=== PATIENT | male | born 1970 | race Caucasian/White ===

== ENCOUNTER 2021-01-08 13:45 | Outpatient (RCR) | payer OTHER, MEDICAID, SELFPAY ==
--- NOTE | 2020-12-18 15:05 | PT.OIE ---
Current Diagnoses Cerebral infarction, unspecified (12/18/20) Hemiplegia and hemiparesis following cerebral infarction affecting right dominant side (12/18/20) Other lack of coordination (12/18/20) Visit Care Team Role Provider Type Catalina Greenberg PA-C Family Provider Non-Staff Primary Care Provider Specialty: Medical Address: [address] [place] [address], [id number] Email: José Quinn MD Attending Provider Non-Staff Referring Provider Specialty: Medical Address: [address] [place] [address], [id number] Email: Physical Therapy Initial Evaluation PT-OP-A Visit Information Start: 12/18/20 08:37 Freq: Status: Active Protocol: Document 12/18/20 11:15 AW (Rec: 12/18/20 08:51 AW [email or web address]) Out-Patient Physical Therapy Visit Information Visit Information Visit Type Initial Evaluation Visit Note Pt arrives with his brother, Yoav, but declines for brother to accompany him to exam room. 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 He spent a few weeks at inpatient rehab and was discharged home in early November. Prior to CVA, pt lived alone and was independent in all regards. 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 He now finds it difficult to stand long enough to engage in music making and has impaired speech (aphasia, paraphasia, word-finding challenges). He complains of right sided weakness, dull right-side sensation, and poor ability to know where his right limbs are in space. He now lives with his brother and mother. He states he and his brother provide assist for their mother. Yoav has a job that frequently takes him to [place] . Karissa is now able to complete all ADL's without assist. He denies falls. He gets tired more easily than usual. He is not currently driving and depends on his brother to take him to appointments. He misses the social and emotional aspects of music. Prior Treatments and Tests - IPR at [facility] following CVA. - Outpatient speech therapy concurrent with PT. Future Testing and Treatments Planned Pt has referral for outpatient OT but has not yet scheduled. Treatment Goals Patient/Caregiver Goals Hopes to return to driving. Interact socially around music . Personal Factors Other Personal Factors That May Effect Pt is strongly motivated to Therapy/Recovery return to independent driving and music-making. PT-OP-C Subjective Start: 12/18/20 08:37 Freq: Status: Active Protocol: Document 12/18/20 11:15 AW (Rec: 12/18/20 13:13 AW [email or web address]) OP-PT Subjective Patient Comments Patient Comments Pt struggles with word-finding and becomes frustrated with poor ability to speak. Enunciation is good but pt appears to have some oral motor apraxia. OP-PT Pain Assessment Pain Assessment Grid Paper Pain Assessment Grid Completed No: Pt reports pressure sensation in right thigh and lower leg but denies pain. PT-OP-D Balance Start: 12/18/20 08:37 Freq: Status: Active Protocol: Document 12/18/20 11:15 AW (Rec: 12/18/20 13:13 AW [email or web address]) Balance Tests Single Limb Standing Single Limb- Right 20 seconds with some evidence of instabilty Single Limb- Left >30 seconds stable PT-OP-E Functional Tests Start: 12/18/20 08:37 Freq: Status: Active Protocol: Document 12/18/20 11:15 AW (Rec: 12/18/20 13:13 AW [email or web address]) Functional Tests Functional Gait Assessment Score 25 Functional Gait Assessment Impairment 1 to <20% Impaired (Score 25- Rating 29) PT-OP-H Neuro Start: 12/18/20 08:37 Freq: Status: Active Protocol: Document 12/18/20 11:15 AW (Rec: 12/18/20 13:27 AW [email or web address]) Sensation Evaluation Gross Sensation Gross Sensation Right UE Impaired,Right LE Impaired Sensation Description Numbness,Heaviness Comments Summary Comments Dull light touch sensation throughout right upper and lower extremities. Pt does note sensation of heaviness and pressure in distal right thigh. Coordination Evaluation Comments Coordination Comments Signs of dysmetria on right side with finger to nose and finger braulio testing. Dysdiadochokinesia is present with rapid alternating pronation/supination. Foot tapping test produces involuntary movements and poor coordination RLE. Deep Tendon Reflex & Clonus Assessment Deep Tendon Reflex Left Achilles Deep Tendon Reflex 1+ Diminished Left Patellar Deep Tendon Reflex 2+ Normal Left Bicep Deep Tendon Reflex 1+ Diminished Right Achilles Deep Tendon Reflex 0 Absent Right Patellar Deep Tendon Reflex 1+ Diminished Right Bicep Deep Tendon Reflex 0 Absent PT-OP-K Range of Motion Start: 12/18/20 08:37 Freq: Status: Active Protocol: Document 12/18/20 11:15 AW (Rec: 12/18/20 13:27 AW [email or web address]) Shoulder Goniometric Range of Motion Shoulder bilateral Comments All UE ROM WNL Hip Goniometric Range of Motion Hip ROM Limitations Comments All LE ROM WNL PT-OP-M Strength Start: 12/18/20 08:37 Freq: Status: Active Protocol: Document 12/18/20 11:15 AW (Rec: 12/18/20 13:27 AW [email or web address]) Trunk Strength Trunk Manual Muscle Testing Testing Position Sitting Comments All trunk strength WNL Shoulder Strength Shoulder Manual Muscle Testing Right Flexion 4 Good Abduction (C5) 4 Good External Rotation 4 Good Internal Rotation 4 Good Comments LUE grossly 5/5 Elbow/Forearm Strength Elbow and Forearm Manual Muscle Testing Right Flexion (C6) 4+ Good+ Extension (C7) 4 Good Comments Left 5/5 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 Knee Strength Knee Manual Muscle Testing Right Flexion (S2) 4 Good Extension (L3) 4+ Good+ Comments left knee 5/5 Ankle/Foot Strength Ankle and Foot Manual Muscle Testing Right Dorsiflexion (L4) 4+ Good+ Plantarflexion (S1) 4 Good Comments left ankle 5/5 PT-OP-O Vestibular Start: 12/18/20 08:37 Freq: Status: Active Protocol: Document 12/18/20 11:15 AW (Rec: 12/18/20 13:29 AW [email or web address]) Vestibular Assessment Comments Vestibular Comments Vestibular screening WNL including head thrust. Good gaze stability. No signs of vestibular involvement. PT-OP-T Assessment and Plan Start: 12/18/20 08:37 Freq: Status: Active Protocol: Document 12/18/20 11:15 AW (Rec: 12/18/20 13:44 AW [email or web address]) Physical Therapy Assessment Rehab Potential Rehabilitation Potential Good Evaluation Complexity Number of Personal Factors/Comorbidities 1-2 Number of Body Systems Impaired 3 Clinical Presentation at Evaluation Stable Impairments Impairments Activity Tolerance,Balance, Coordination,Functional Activities,Gait,Sensation, Strength Other Concerns Fall Risk low per FGA score of 25/30 Goals Four Impairment dynamic balance Hash Slinger Goal (LTG) Pt will improve FGA score from 25/30 to 28/30 or greater for reduced falls risk and balance concordant with norms for age-matched peers. LTG Duration 3 months - 03/20/21 Three Impairment coordination RUE Custodial Goal (LTG) Pt will practice percussion instrument of choice for 30 minutes as evidence of improved UE coordination. LTG Duration 3 months - 03/20/21 Two Impairment limited standing tolerance Hash Slinger Goal (LTG) Pt will stand 60 minutes for improved ability to participate in musical endeavors. LTG Duration 3 months - 03/20/21 One Impairment lacks HEP Short Term Goal (STG) Pt will be instructed in HEP for LE strength and coordination STG Duration 6 weeks - 01/29/21 Custodial Goal (LTG) Pt will be independent with maintenance HEP for LE strength and coordination. LTG Duration 3 months - 03/20/21 Assessment Summary Assessment Karissa is a 50 yo man seen in outpatient PT following left MCA CVA in October 2020. He went to inpatient rehab and discharged home in early November. He is independent in all regards at baseline. 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 He would benefit from skilled physical therapy to address coordination, sensory, strength, and balance deficits to promote return to work including musicianship. Physical Therapy Plan Frequency and Duration Frequency of Treatment 1-2x/week Plan of Care Start Date 12/18/20 Plan of Care End Date 03/20/21 Therapeutic Interventions Therapeutic Interventions Balance Training,Coordination Training,Gait Training,Home Exercise Program,Manual Therapy,Neuromuscular Re- education,Patient/Caregiver Education,Self-Care/Home Management,Sensory Integration ,Therapeutic Activities, Therapeutic Exercises Other Referrals/Consults Referrals/Consults Recommended Pt is currently seeing outpatient [facility] and would benefit from OT as well. Next Visit Focus/Plan Next Note Type Treatment Note Next Visit Plan Initiate coordination/ proprioceptive training directed at R UE/LE. R UE/LE strengthening.
--- NOTE | 2020-12-18 15:05 | PT.OPPOC ---
Physical, Occupational & Speech Therapy At [facility] Current Diagnoses Cerebral infarction, unspecified (12/18/20) Hemiplegia and hemiparesis following cerebral infarction affecting right dominant side (12/18/20) Other lack of coordination (12/18/20) Visit Care Team Role Provider Type Catalina Greenberg PA-C Family Provider Non-Staff Primary Care Provider Specialty: Medical Address: [address] [place] [address], [address] Email: José Quinn MD Attending Provider Non-Staff Referring Provider Specialty: Medical Address: [address] [place] [address], [address] Email: Plan Of Care PT-OP-T Assessment and Plan Start: 12/18/20 08:37 Freq: Status: Active Protocol: Document 12/18/20 11:15 AW (Rec: 12/18/20 13:44 AW [email or web address]) Physical Therapy Assessment Rehab Potential Rehabilitation Potential Good Evaluation Complexity Number of Personal Factors/Comorbidities 1-2 Number of Body Systems Impaired 3 Clinical Presentation at Evaluation Stable Impairments Impairments Activity Tolerance,Balance, Coordination,Functional Activities,Gait,Sensation, Strength Other Concerns Fall Risk low per FGA score of 25/30 Goals Four Impairment dynamic balance Head Still Operator Goal (LTG) Pt will improve FGA score from 25/30 to 28/30 or greater for reduced falls risk and balance concordant with norms for age-matched peers. LTG Duration 3 months - 03/20/21 Three Impairment coordination RUE Half-Way Goal (LTG) Pt will practice percussion instrument of choice for 30 minutes as evidence of improved UE coordination. LTG Duration 3 months - 03/20/21 Two Impairment limited standing tolerance Head Still Operator Goal (LTG) Pt will stand 60 minutes for improved ability to participate in musical endeavors. LTG Duration 3 months - 03/20/21 One Impairment lacks HEP Short Term Goal (STG) Pt will be instructed in HEP for LE strength and coordination STG Duration 6 weeks - 01/29/21 Half-Way Goal (LTG) Pt will be independent with maintenance HEP for LE strength and coordination. LTG Duration 3 months - 03/20/21 Assessment Summary Assessment Karissa is a 50 yo man seen in outpatient PT following left MCA CVA in October 2020. He went to inpatient rehab and discharged home in early November. He is independent in all regards at baseline. 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 He would benefit from skilled physical therapy to address coordination, sensory, strength, and balance deficits to promote return to work including musicianship. Physical Therapy Plan Frequency and Duration Frequency of Treatment 1-2x/week Plan of Care Start Date 12/18/20 Plan of Care End Date 03/20/21 Therapeutic Interventions Therapeutic Interventions Balance Training,Coordination Training,Gait Training,Home Exercise Program,Manual Therapy,Neuromuscular Re- education,Patient/Caregiver Education,Self-Care/Home Management,Sensory Integration ,Therapeutic Activities, Therapeutic Exercises Other Referrals/Consults Referrals/Consults Recommended Pt is currently seeing outpatient [facility] and would benefit from OT as well. Next Visit Focus/Plan Next Note Type Treatment Note Next Visit Plan Initiate coordination/ proprioceptive training directed at R UE/LE. R UE/LE strengthening. Plan of Care Dates Plan of Care Start Date 12/18/20 Plan of Care End Date 03/20/21 Electronically Signed by: Lissett Sexton, PT 12/18/20 0267 Please Sign and Return: I have reviewed this Plan of Care and certify that the skilled therapy services above are required to meet the patient?s needs. Physician Signature Date Printed Name and Credentials Clinical Instructor Signature Printed Name and Credentials
--- NOTE | 2020-12-20 12:42 | PT.OTN ---
Current Diagnoses Cerebral infarction, unspecified (12/20/20) Hemiplegia and hemiparesis following cerebral infarction affecting right dominant side (12/20/20) Other lack of coordination (12/20/20) Physical Therapy Treatment Note PT-OP-A Visit Information Start: 12/18/20 08:37 Freq: Status: Active Protocol: Document 12/20/20 11:15 AW (Rec: 12/20/20 12:42 AW [email or web address]) Out-Patient Physical Therapy Visit Information Visit Information Visit Type Treatment Note Visit Start Time 10:30 Visit Stop Time 11:15 Total Visit Minutes 45 Visit Number 2 Number of HEALTHCARE PROJECT MANAGER Visits 0 Evaluation Information Evaluation Date 12/18/20 PT-OP-B Current Condition Start: 12/18/20 08:37 Freq: Status: Active Protocol: Document 12/18/20 11:15 AW (Rec: 12/18/20 08:51 AW [email or web address]) Current Condition History of Current Condition Onset Date 11/08/20 Current Complaints R-sided weakness and sensation disturbance s/p CVA History of Current Condition Pt was found down on 11/08/20 and treated with tPA and embolectomy for acute left ICA /MCA occlusion, 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 He spent a few weeks at inpatient rehab and was discharged home in early November. Prior to CVA, pt lived alone and was independent in all regards. 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 He now finds it difficult to stand long enough to engage in music making and has impaired speech (aphasia, paraphasia, word-finding challenges). He complains of right sided weakness, dull right-side sensation, and poor ability to know where his right limbs are in space. He now lives with his brother and mother. He states he and his brother provide assist for their mother. Yoav has a job that frequently takes him to [place] . Karissa is now able to complete all ADL's without assist. He denies falls. He gets tired more easily than usual. He is not currently driving and depends on his brother to take him to appointments. He misses the social and emotional aspects of music. Prior Treatments and Tests - IPR at [facility] following CVA. - Outpatient speech therapy concurrent with PT. Future Testing and Treatments Planned Pt has referral for outpatient OT but has not yet scheduled. Treatment Goals Patient/Caregiver Goals Hopes to return to driving. Interact socially around music . Personal Factors Other Personal Factors That May Effect Pt is strongly motivated to Therapy/Recovery return to independent driving and music-making. PT-OP-C Subjective Start: 12/18/20 08:37 Freq: Status: Active Protocol: Document 12/20/20 11:15 AW (Rec: 12/20/20 12:42 AW [email or web address]) OP-PT Subjective Patient Comments Patient Comments Pt is anxious to start therapy . PT-OP-D Balance Start: 12/18/20 08:37 Freq: Status: Active Protocol: Document 12/18/20 11:15 AW (Rec: 12/18/20 13:13 AW [email or web address]) Balance Tests Single Limb Standing Single Limb- Right 20 seconds with some evidence of instabilty Single Limb- Left >30 seconds stable PT-OP-E Functional Tests Start: 12/18/20 08:37 Freq: Status: Active Protocol: Document 12/18/20 11:15 AW (Rec: 12/18/20 13:13 AW [email or web address]) Functional Tests Functional Gait Assessment Score 25 Functional Gait Assessment Impairment 1 to <20% Impaired (Score 25- Rating 29) PT-OP-H Neuro Start: 12/18/20 08:37 Freq: Status: Active Protocol: Document 12/18/20 11:15 AW (Rec: 12/18/20 13:27 AW [email or web address]) Sensation Evaluation Gross Sensation Gross Sensation Right UE Impaired,Right LE Impaired Sensation Description Numbness,Heaviness Comments Summary Comments Dull light touch sensation throughout right upper and lower extremities. Pt does note sensation of heaviness and pressure in distal right thigh. Coordination Evaluation Comments Coordination Comments Signs of dysmetria on right side with finger to nose and finger braulio testing. Dysdiadochokinesia is present with rapid alternating pronation/supination. Foot tapping test produces involuntary movements and poor coordination RLE. Deep Tendon Reflex & Clonus Assessment Deep Tendon Reflex Left Achilles Deep Tendon Reflex 1+ Diminished Left Patellar Deep Tendon Reflex 2+ Normal Left Bicep Deep Tendon Reflex 1+ Diminished Right Achilles Deep Tendon Reflex 0 Absent Right Patellar Deep Tendon Reflex 1+ Diminished Right Bicep Deep Tendon Reflex 0 Absent PT-OP-K Range of Motion Start: 12/18/20 08:37 Freq: Status: Active Protocol: Document 12/18/20 11:15 AW (Rec: 12/18/20 13:27 AW [email or web address]) Shoulder Goniometric Range of Motion Shoulder bilateral Comments All UE ROM WNL Hip Goniometric Range of Motion Hip ROM Limitations Comments All LE ROM WNL PT-OP-M Strength Start: 12/18/20 08:37 Freq: Status: Active Protocol: Document 12/18/20 11:15 AW (Rec: 12/18/20 13:27 AW [email or web address]) Trunk Strength Trunk Manual Muscle Testing Testing Position Sitting Comments All trunk strength WNL Shoulder Strength Shoulder Manual Muscle Testing Right Flexion 4 Good Abduction (C5) 4 Good External Rotation 4 Good Internal Rotation 4 Good Comments LUE grossly 5/5 Elbow/Forearm Strength Elbow and Forearm Manual Muscle Testing Right Flexion (C6) 4+ Good+ Extension (C7) 4 Good Comments Left 5/5 Hand Vice President Compliance/Pinch Strength Hand Dominance Hand Dominance Right Hand Strength Right Comments 4/5 compared with 5/5 right side. Knee Strength Knee Manual Muscle Testing Right Flexion (S2) 4 Good Extension (L3) 4+ Good+ Comments left knee 5/5 Ankle/Foot Strength Ankle and Foot Manual Muscle Testing Right Dorsiflexion (L4) 4+ Good+ Plantarflexion (S1) 4 Good Comments left ankle 5/5 PT-OP-O Vestibular Start: 12/18/20 08:37 Freq: Status: Active Protocol: Document 12/18/20 11:15 AW (Rec: 12/18/20 13:29 AW [email or web address]) Vestibular Assessment Comments Vestibular Comments Vestibular screening WNL including head thrust. Good gaze stability. No signs of vestibular involvement. PT-OP-Q Treatments Start: 12/18/20 08:37 Freq: Status: Active Protocol: Document 12/20/20 11:15 AW (Rec: 12/20/20 12:42 AW [email or web address]) Cardio Equipment Treadmill Duration (Minutes) 5 Speed 1.6 Incline 0 Other unsafe; dc; conversational distraction added for increased cog load Gym Equipment Shuttle Recovery Unilateral Squats Details unilateral squat Resistance 75 Shuttle Recovery Platform Stable Reps/Time LLE 2 x 15; RLE 1 x 12; 1 x 10 Therapeutic Exercises Standing Exercises SL stance Standing Exercise Name SL stance Side bilateral Equipment Used rail for prn support Reps/Minutes 20-25 SH gastroc/soleus stretch Standing Exercise Name gastroc/soleus stretch Side bilateral Equipment Used BERYL, wall Reps/Minutes 30 SH x 4 Gait Training Gait Activity level surface with cog load Description level surface with cog load Device Used no AD Level of Assistance SBA Surface tile, carpet Distance/Duration 500 feet Treatment Focus walking while talking Comments Continued with walking/talking on level surface after treadmill trial ended unsafely with pt stepping backward off TM (but did not fall). Pt struggles with word-finding while walking but is safe on level surface and avoids obstacles appropriately Neuro Re-Education Treatment Coordination Activities agility ladder Details agility ladder Reps/Duration 8 min Comments - in-in-out pattern fwd/bwd - lateral [id number] step up/down/step tap Details step up/down/step tap Equipment 6 step Reps/Duration 10 min Comments - step-ups - alternating foot taps ( straight line and cross body) - step down Self-Care/Home Management Treatment Education Patient Education Home Exercise Program Other Education Gave gastroc/soleus stretch and SL stance for HEP PT-OP-T Assessment and Plan Start: 12/18/20 08:37 Freq: Status: Active Protocol: Document 12/20/20 11:15 AW (Rec: 12/20/20 12:42 AW [email or web address]) Physical Therapy Assessment Goals Four Impairment dynamic balance Instrumentation Technologist Goal (LTG) Pt will improve FGA score from 25/30 to 28/30 or greater for reduced falls risk and balance concordant with norms for age-matched peers. LTG Duration 3 months - 03/20/21 Three Impairment coordination RUE Instrumentation Technologist Goal (LTG) Pt will practice percussion instrument of choice for 30 minutes as evidence of improved UE coordination. LTG Duration 3 months - 03/20/21 Two Impairment limited standing tolerance Instrumentation Technologist Goal (LTG) Pt will stand 60 minutes for improved ability to participate in musical endeavors. LTG Duration 3 months - 03/20/21 One Impairment lacks HEP Short Term Goal (STG) Pt will be instructed in HEP for LE strength and coordination STG Duration 6 weeks - 01/29/21 Instrumentation Technologist Goal (LTG) Pt will be independent with maintenance HEP for LE strength and coordination. LTG Duration 3 months - 03/20/21 Assessment Summary Assessment Caven is motivated and shows good effort with all activities. Simple step ups and step taps/cross body step taps presented little challenge. Progressed to agility ladder for patterning and pt was able to learn two patterns but will require more work to increase upper extremity involvement and LE/ UE coordination. Pt's automatic speech (such as counting) is intact and pt is encouraged to count reps out loud with each exercise. Pt will benefit from cognitive loading during gait training and other forms of coordination training. Physical Therapy Plan Frequency and Duration Frequency of Treatment 1-2x/week Plan of Care Start Date 12/18/20 Plan of Care End Date 03/20/21 Therapeutic Interventions Therapeutic Interventions Balance Training,Coordination Training,Gait Training,Home Exercise Program,Manual Therapy,Neuromuscular Re- education,Patient/Caregiver Education,Self-Care/Home Management,Sensory Integration ,Therapeutic Activities, Therapeutic Exercises Other Referrals/Consults Referrals/Consults Recommended Pt is currently seeing outpatient [facility] and would benefit from OT as well. Next Visit Focus/Plan Next Note Type Treatment Note Next Visit Plan Continue coordination training especially cross body and UE/ LE coordination.
--- NOTE | 2020-12-25 12:29 | PT.OTN ---
Current Diagnoses Cerebral infarction, unspecified (12/25/20) Hemiplegia and hemiparesis following cerebral infarction affecting right dominant side (12/25/20) Other lack of coordination (12/25/20) Physical Therapy Treatment Note PT-OP-A Visit Information Start: 12/18/20 08:37 Freq: Status: Active Protocol: Document 12/25/20 11:15 AW (Rec: 12/25/20 11:19 AW [email or web address]) Out-Patient Physical Therapy Visit Information Visit Information Visit Type Treatment Note Visit Start Time 10:30 Visit Stop Time 11:15 Total Visit Minutes 45 Visit Number 3 Number of DYEING MACHINE FEEDER Visits 0 Evaluation Information Evaluation Date 12/18/20 PT-OP-B Current Condition Start: 12/18/20 08:37 Freq: Status: Active Protocol: Document 12/18/20 11:15 AW (Rec: 12/18/20 08:51 AW [email or web address]) Current Condition History of Current Condition Onset Date 11/08/20 Current Complaints R-sided weakness and sensation disturbance s/p CVA History of Current Condition Pt was found down on 11/08/20 and treated with tPA and embolectomy for acute left ICA /MCA occlusion, 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 He spent a few weeks at inpatient rehab and was discharged home in early November. Prior to CVA, pt lived alone and was independent in all regards. 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 He now finds it difficult to stand long enough to engage in music making and has impaired speech (aphasia, paraphasia, word-finding challenges). He complains of right sided weakness, dull right-side sensation, and poor ability to know where his right limbs are in space. He now lives with his brother and mother. He states he and his brother provide assist for their mother. Yoav has a job that frequently takes him to [place] . Karissa is now able to complete all ADL's without assist. He denies falls. He gets tired more easily than usual. He is not currently driving and depends on his brother to take him to appointments. He misses the social and emotional aspects of music. Prior Treatments and Tests - IPR at [facility] following CVA. - Outpatient speech therapy concurrent with PT. Future Testing and Treatments Planned Pt has referral for outpatient OT but has not yet scheduled. Treatment Goals Patient/Caregiver Goals Hopes to return to driving. Interact socially around music . Personal Factors Other Personal Factors That May Effect Pt is strongly motivated to Therapy/Recovery return to independent driving and music-making. PT-OP-C Subjective Start: 12/18/20 08:37 Freq: Status: Active Protocol: Document 12/25/20 11:15 AW (Rec: 12/25/20 11:19 AW [id number]) OP-PT Subjective Patient Comments Patient Comments Pt went on a 1/2 mile walk and had to stop due to right calf tightness. PT-OP-D Balance Start: 12/18/20 08:37 Freq: Status: Active Protocol: Document 12/18/20 11:15 AW (Rec: 12/18/20 13:13 AW [email or web address]) Balance Tests Single Limb Standing Single Limb- Right 20 seconds with some evidence of instabilty Single Limb- Left >30 seconds stable PT-OP-E Functional Tests Start: 12/18/20 08:37 Freq: Status: Active Protocol: Document 12/18/20 11:15 AW (Rec: 12/18/20 13:13 AW [email or web address]) Functional Tests Functional Gait Assessment Score 25 Functional Gait Assessment Impairment 1 to <20% Impaired (Score 25- Rating 29) PT-OP-H Neuro Start: 12/18/20 08:37 Freq: Status: Active Protocol: Document 12/18/20 11:15 AW (Rec: 12/18/20 13:27 AW [email or web address]) Sensation Evaluation Gross Sensation Gross Sensation Right UE Impaired,Right LE Impaired Sensation Description Numbness,Heaviness Comments Summary Comments Dull light touch sensation throughout right upper and lower extremities. Pt does note sensation of heaviness and pressure in distal right thigh. Coordination Evaluation Comments Coordination Comments Signs of dysmetria on right side with finger to nose and finger braulio testing. Dysdiadochokinesia is present with rapid alternating pronation/supination. Foot tapping test produces involuntary movements and poor coordination RLE. Deep Tendon Reflex & Clonus Assessment Deep Tendon Reflex Left Achilles Deep Tendon Reflex 1+ Diminished Left Patellar Deep Tendon Reflex 2+ Normal Left Bicep Deep Tendon Reflex 1+ Diminished Right Achilles Deep Tendon Reflex 0 Absent Right Patellar Deep Tendon Reflex 1+ Diminished Right Bicep Deep Tendon Reflex 0 Absent PT-OP-K Range of Motion Start: 12/18/20 08:37 Freq: Status: Active Protocol: Document 12/18/20 11:15 AW (Rec: 12/18/20 13:27 AW [email or web address]) Shoulder Goniometric Range of Motion Shoulder bilateral Comments All UE ROM WNL Hip Goniometric Range of Motion Hip ROM Limitations Comments All LE ROM WNL PT-OP-M Strength Start: 12/18/20 08:37 Freq: Status: Active Protocol: Document 12/18/20 11:15 AW (Rec: 12/18/20 13:27 AW [email or web address]) Trunk Strength Trunk Manual Muscle Testing Testing Position Sitting Comments All trunk strength WNL Shoulder Strength Shoulder Manual Muscle Testing Right Flexion 4 Good Abduction (C5) 4 Good External Rotation 4 Good Internal Rotation 4 Good Comments LUE grossly 5/5 Elbow/Forearm Strength Elbow and Forearm Manual Muscle Testing Right Flexion (C6) 4+ Good+ Extension (C7) 4 Good Comments Left 5/5 Hand Building Rigger/Pinch Strength Hand Dominance Hand Dominance Right Hand Strength Right Comments 4/5 compared with 5/5 right side. Knee Strength Knee Manual Muscle Testing Right Flexion (S2) 4 Good Extension (L3) 4+ Good+ Comments left knee 5/5 Ankle/Foot Strength Ankle and Foot Manual Muscle Testing Right Dorsiflexion (L4) 4+ Good+ Plantarflexion (S1) 4 Good Comments left ankle 5/5 PT-OP-O Vestibular Start: 12/18/20 08:37 Freq: Status: Active Protocol: Document 12/18/20 11:15 AW (Rec: 12/18/20 13:29 AW [email or web address]) Vestibular Assessment Comments Vestibular Comments Vestibular screening WNL including head thrust. Good gaze stability. No signs of vestibular involvement. PT-OP-Q Treatments Start: 12/18/20 08:37 Freq: Status: Active Protocol: Document 12/25/20 11:15 AW (Rec: 12/25/20 12:29 AW [email or web address]) Therapeutic Exercises Standing Exercises resisted ambulation Standing Exercise Name lateral and fwd Resistance yellow loop Reps/Minutes 20' lap x 4 SL stance Standing Exercise Name SL stance Side bilateral Equipment Used rail for prn support Reps/Minutes 20-25 SH gastroc/soleus stretch Standing Exercise Name gastroc/soleus stretch Side bilateral Equipment Used BERYL, wall Reps/Minutes 30 SH x 4 Gait Training Gait Activity stairs Description stairs Device Used L rail ascending Level of Assistance SBA Distance/Duration 5 min Treatment Focus proprioception; foot placement Comments Practiced on lobby stairs 14 x 5 with emphasis on full right foot placed on step vs initially observed with only forefoot on step especially ascending. level surface with cog load Description level surface with cog load Device Used no AD Level of Assistance SBA Surface tile, carpet Distance/Duration 12 min Treatment Focus walking while talking Comments Walking and talking, hurdles. Pt was asked to count backward from 50 and from 100 by varying factors. Speed slows with cognitive load but pt was successful navigating hurdles with and without distraction. Neuro Re-Education Treatment Coordination Activities box step Details box step Speed not timed Reps/Duration 5 min Comments Pt had difficulty coordinating foot movements especially when switching left to right. Assigned for HEP agility ladder Details agility ladder Reps/Duration 2 min Comments attempted LE/UE coordination but was too challenging for pt ; moved on to box step step up/down/step tap Details step up/down/step tap Equipment 6 step Reps/Duration 7 min Comments - alternating foot taps ( straight line and cross body) with EO and EC PT-OP-T Assessment and Plan Start: 12/18/20 08:37 Freq: Status: Active Protocol: Document 12/25/20 11:15 AW (Rec: 12/25/20 12:29 AW [email or web address]) Physical Therapy Assessment Rehab Potential Rehabilitation Potential Good Evaluation Complexity Number of Personal Factors/Comorbidities 1-2 Number of Body Systems Impaired 3 Clinical Presentation at Evaluation Stable Impairments Impairments Activity Tolerance,Balance, Coordination,Functional Activities,Gait,Sensation, Strength Other Concerns Fall Risk low per FGA score of 25/30 Goals Four Impairment dynamic balance Chcf Goal (LTG) Pt will improve FGA score from 25/30 to 28/30 or greater for reduced falls risk and balance concordant with norms for age-matched peers. LTG Duration 3 months - 03/20/21 Three Impairment coordination RUE Tool Grinder Goal (LTG) Pt will practice percussion instrument of choice for 30 minutes as evidence of improved UE coordination. LTG Duration 3 months - 03/20/21 Two Impairment limited standing tolerance Tool Grinder Goal (LTG) Pt will stand 60 minutes for improved ability to participate in musical endeavors. LTG Duration 3 months - 03/20/21 One Impairment lacks HEP Short Term Goal (STG) Pt will be instructed in HEP for LE strength and coordination STG Duration 6 weeks - 01/29/21 Tool Grinder Goal (LTG) Pt will be independent with maintenance HEP for LE strength and coordination. LTG Duration 3 months - 03/20/21 Assessment Summary Assessment Karissa struggles with gait tasks and gait speed decreases when cognitive load is increased but he has no LOB. LE/UE coordination remains challenging. Assigned hip strength and box step (for coordination) to home program. 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 Next Visit Focus/Plan Next Note Type Treatment Note Next Visit Plan Continue coordination training especially cross body and UE/ LE coordination. Cognitive load with gait and coordination tasks.
--- NOTE | 2020-12-27 12:27 | PT.OTN ---
Current Diagnoses Cerebral infarction, unspecified (12/27/20) Hemiplegia and hemiparesis following cerebral infarction affecting right dominant side (12/27/20) Other lack of coordination (12/27/20) Physical Therapy Treatment Note PT-OP-A Visit Information Start: 12/18/20 08:37 Freq: Status: Active Protocol: Document 12/27/20 11:16 AW (Rec: 12/27/20 12:27 AW [email or web address]) Out-Patient Physical Therapy Visit Information Visit Information Visit Type Treatment Note Visit Start Time 10:30 Visit Stop Time 11:16 Total Visit Minutes 46 Visit Number 4 Number of DYE LINE OPERATOR Visits 0 Evaluation Information Evaluation Date 12/18/20 PT-OP-B Current Condition Start: 12/18/20 08:37 Freq: Status: Active Protocol: Document 12/18/20 11:15 AW (Rec: 12/18/20 08:51 AW [email or web address]) Current Condition History of Current Condition Onset Date 11/08/20 Current Complaints R-sided weakness and sensation disturbance s/p CVA History of Current Condition Pt was found down on 11/08/20 and treated with tPA and embolectomy for acute left ICA /MCA occlusion, 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 He spent a few weeks at inpatient rehab and was discharged home in early November. Prior to CVA, pt lived alone and was independent in all regards. 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 He now finds it difficult to stand long enough to engage in music making and has impaired speech (aphasia, paraphasia, word-finding challenges). He complains of right sided weakness, dull right-side sensation, and poor ability to know where his right limbs are in space. He now lives with his brother and mother. He states he and his brother provide assist for their mother. Yoav has a job that frequently takes him to [place] . Karissa is now able to complete all ADL's without assist. He denies falls. He gets tired more easily than usual. He is not currently driving and depends on his brother to take him to appointments. He misses the social and emotional aspects of music. Prior Treatments and Tests - IPR at [facility] following CVA. - Outpatient speech therapy concurrent with PT. Future Testing and Treatments Planned Pt has referral for outpatient OT but has not yet scheduled. Treatment Goals Patient/Caregiver Goals Hopes to return to driving. Interact socially around music . Personal Factors Other Personal Factors That May Effect Pt is strongly motivated to Therapy/Recovery return to independent driving and music-making. PT-OP-C Subjective Start: 12/18/20 08:37 Freq: Status: Active Protocol: Document 12/27/20 11:16 AW (Rec: 12/27/20 12:27 AW [email or web address]) OP-PT Subjective Patient Comments Patient Comments Pt has been working on HEP, feels he is ready to reduce to once weekly visits. PT-OP-D Balance Start: 12/18/20 08:37 Freq: Status: Active Protocol: Document 12/18/20 11:15 AW (Rec: 12/18/20 13:13 AW [email or web address]) Balance Tests Single Limb Standing Single Limb- Right 20 seconds with some evidence of instabilty Single Limb- Left >30 seconds stable PT-OP-E Functional Tests Start: 12/18/20 08:37 Freq: Status: Active Protocol: Document 12/18/20 11:15 AW (Rec: 12/18/20 13:13 AW [email or web address]) Functional Tests Functional Gait Assessment Score 25 Functional Gait Assessment Impairment 1 to <20% Impaired (Score 25- Rating 29) PT-OP-H Neuro Start: 12/18/20 08:37 Freq: Status: Active Protocol: Document 12/18/20 11:15 AW (Rec: 12/18/20 13:27 AW [email or web address]) Sensation Evaluation Gross Sensation Gross Sensation Right UE Impaired,Right LE Impaired Sensation Description Numbness,Heaviness Comments Summary Comments Dull light touch sensation throughout right upper and lower extremities. Pt does note sensation of heaviness and pressure in distal right thigh. Coordination Evaluation Comments Coordination Comments Signs of dysmetria on right side with finger to nose and finger braulio testing. Dysdiadochokinesia is present with rapid alternating pronation/supination. Foot tapping test produces involuntary movements and poor coordination RLE. Deep Tendon Reflex & Clonus Assessment Deep Tendon Reflex Left Achilles Deep Tendon Reflex 1+ Diminished Left Patellar Deep Tendon Reflex 2+ Normal Left Bicep Deep Tendon Reflex 1+ Diminished Right Achilles Deep Tendon Reflex 0 Absent Right Patellar Deep Tendon Reflex 1+ Diminished Right Bicep Deep Tendon Reflex 0 Absent PT-OP-K Range of Motion Start: 12/18/20 08:37 Freq: Status: Active Protocol: Document 12/18/20 11:15 AW (Rec: 12/18/20 13:27 AW [email or web address]) Shoulder Goniometric Range of Motion Shoulder bilateral Comments All UE ROM WNL Hip Goniometric Range of Motion Hip ROM Limitations Comments All LE ROM WNL PT-OP-M Strength Start: 12/18/20 08:37 Freq: Status: Active Protocol: Document 12/18/20 11:15 AW (Rec: 12/18/20 13:27 AW [email or web address]) Trunk Strength Trunk Manual Muscle Testing Testing Position Sitting Comments All trunk strength WNL Shoulder Strength Shoulder Manual Muscle Testing Right Flexion 4 Good Abduction (C5) 4 Good External Rotation 4 Good Internal Rotation 4 Good Comments LUE grossly 5/5 Elbow/Forearm Strength Elbow and Forearm Manual Muscle Testing Right Flexion (C6) 4+ Good+ Extension (C7) 4 Good Comments Left 5/5 Hand Electric Melt Operator/Pinch Strength Hand Dominance Hand Dominance Right Hand Strength Right Comments 4/5 compared with 5/5 right side. Knee Strength Knee Manual Muscle Testing Right Flexion (S2) 4 Good Extension (L3) 4+ Good+ Comments left knee 5/5 Ankle/Foot Strength Ankle and Foot Manual Muscle Testing Right Dorsiflexion (L4) 4+ Good+ Plantarflexion (S1) 4 Good Comments left ankle 5/5 PT-OP-O Vestibular Start: 12/18/20 08:37 Freq: Status: Active Protocol: Document 12/18/20 11:15 AW (Rec: 12/18/20 13:29 AW [email or web address]) Vestibular Assessment Comments Vestibular Comments Vestibular screening WNL including head thrust. Good gaze stability. No signs of vestibular involvement. PT-OP-Q Treatments Start: 12/18/20 08:37 Freq: Status: Active Protocol: Document 12/27/20 11:16 AW (Rec: 12/27/20 12:27 AW [email or web address]) Gym Equipment Shuttle Balance red chains Details NBOS, arm movements Reps/Duration 5 min Comments Pt able to stand NBOS and swing arms together and reciprocating SBA. Therapeutic Exercises Standing Exercises SL stance Standing Exercise Name SL stance on foam Side bilateral Equipment Used rail for prn support Reps/Minutes 20-30 sec Comments also added paloff press in SLS gastroc/soleus stretch Standing Exercise Name gastroc/soleus stretch Side bilateral Equipment Used BERYL, wall Reps/Minutes 30 SH x 4 Gait Training Gait Activity level surface with cog load Description level surface with cog load Device Used no AD Level of Assistance SBA Surface tile, carpet Distance/Duration 10 min Treatment Focus walking while talking Comments Walking and talking. Pt was asked to count forward by threes, to list chords in familiar songs, and to list fruits by category. Category naming was most challenging. Speed slows with cognitive load but pt was successful navigating obstacles with and without distraction. Neuro Re-Education Treatment Coordination Activities grapevine Details grapevine Reps/Duration 20' laps x 3 Comments Focus on step length, foot clearance. box step Details box step Speed 60-65 bpm Reps/Duration 5 min Comments With auditory cues provided by metronome. Pt able to replicate at home step up/down/step tap Details step up/down/step tap Equipment 6 step Reps/Duration 5 min Comments - alternating foot taps ( straight line and cross body) with EO and EC Self-Care/Home Management Treatment Education Patient Education Home Exercise Program Other Education Added box step with metronome for HEP and encouraged SLS with hip flexed to 90 degrees. PT-OP-T Assessment and Plan Start: 12/18/20 08:37 Freq: Status: Active Protocol: Document 12/27/20 11:16 AW (Rec: 12/27/20 12:27 AW [email or web address]) Physical Therapy Assessment Other Concerns Fall Risk low per FGA score of 25/30 Goals Four Impairment dynamic balance Fisheries Technician Goal (LTG) Pt will improve FGA score from 25/30 to 28/30 or greater for reduced falls risk and balance concordant with norms for age-matched peers. LTG Duration 3 months - 03/20/21 Three Impairment coordination RUE Residential Goal (LTG) Pt will practice percussion instrument of choice for 30 minutes as evidence of improved UE coordination. LTG Duration 3 months - 03/20/21 Two Impairment limited standing tolerance Residential Goal (LTG) Pt will stand 60 minutes for improved ability to participate in musical endeavors. LTG Duration 3 months - 03/20/21 One Impairment lacks HEP Short Term Goal (STG) Pt will be instructed in HEP for LE strength and coordination STG Duration 6 weeks - 01/29/21 Residential Goal (LTG) Pt will be independent with maintenance HEP for LE strength and coordination. LTG Duration 3 months - 03/20/21 Assessment Summary Assessment Gait speed more consistent with cognitive load today. Pt progressing with coordination tasks and can perform simple box step at rate of 60-65 movements per minute. Pt will reduce visit frequency to weekly to coordinate with LEHR OPERATOR appointments. Physical Therapy Plan Frequency and Duration Frequency of Treatment 1-2x/week Plan of Care Start Date 12/18/20 Plan of Care End Date 03/20/21 Therapeutic Interventions Therapeutic Interventions Balance Training,Coordination Training,Gait Training,Home Exercise Program,Manual Therapy,Neuromuscular Re- education,Patient/Caregiver Education,Self-Care/Home Management,Sensory Integration ,Therapeutic Activities, Therapeutic Exercises Next Visit Focus/Plan Next Note Type Treatment Note Next Visit Plan Continue coordination training especially cross body and UE/ LE coordination. Cognitive load with gait and coordination tasks.
--- NOTE | 2021-01-03 16:25 | PT.OTN ---
Current Diagnoses Cerebral infarction, unspecified (01/03/21) Hemiplegia and hemiparesis following cerebral infarction affecting right dominant side (01/03/21) Other lack of coordination (01/03/21) Physical Therapy Treatment Note PT-OP-A Visit Information Start: 12/18/20 08:37 Freq: Status: Active Protocol: Document 01/03/21 14:30 AW (Rec: 01/03/21 14:33 AW [email or web address]) Out-Patient Physical Therapy Visit Information Visit Information Visit Type Treatment Note Visit Start Time 13:45 Visit Stop Time 14:30 Total Visit Minutes 45 Visit Number 5 Number of STENO POOL SUPERVISOR Visits 0 Evaluation Information Evaluation Date 12/18/20 PT-OP-B Current Condition Start: 12/18/20 08:37 Freq: Status: Active Protocol: Document 12/18/20 11:15 AW (Rec: 12/18/20 08:51 AW [email or web address]) Current Condition History of Current Condition Onset Date 11/08/20 Current Complaints R-sided weakness and sensation disturbance s/p CVA History of Current Condition Pt was found down on 11/08/20 and treated with tPA and embolectomy for acute left ICA /MCA occlusion, 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 He spent a few weeks at inpatient rehab and was discharged home in early November. Prior to CVA, pt lived alone and was independent in all regards. 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 He now finds it difficult to stand long enough to engage in music making and has impaired speech (aphasia, paraphasia, word-finding challenges). He complains of right sided weakness, dull right-side sensation, and poor ability to know where his right limbs are in space. He now lives with his brother and mother. He states he and his brother provide assist for their mother. Yoav has a job that frequently takes him to [place] . Karissa is now able to complete all ADL's without assist. He denies falls. He gets tired more easily than usual. He is not currently driving and depends on his brother to take him to appointments. He misses the social and emotional aspects of music. Prior Treatments and Tests - IPR at [facility] following CVA. - Outpatient speech therapy concurrent with PT. Future Testing and Treatments Planned Pt has referral for outpatient OT but has not yet scheduled. Treatment Goals Patient/Caregiver Goals Hopes to return to driving. Interact socially around music . Personal Factors Other Personal Factors That May Effect Pt is strongly motivated to Therapy/Recovery return to independent driving and music-making. PT-OP-C Subjective Start: 12/18/20 08:37 Freq: Status: Active Protocol: Document 01/03/21 14:30 AW (Rec: 01/03/21 14:33 AW [email or web address]) OP-PT Subjective Patient Comments Patient Comments Pt continues to work on HEP consistently. He has been practicing [employer] at home and feels good about his breath support. PT-OP-D Balance Start: 12/18/20 08:37 Freq: Status: Active Protocol: Document 12/18/20 11:15 AW (Rec: 12/18/20 13:13 AW [email or web address]) Balance Tests Single Limb Standing Single Limb- Right 20 seconds with some evidence of instabilty Single Limb- Left >30 seconds stable PT-OP-E Functional Tests Start: 12/18/20 08:37 Freq: Status: Active Protocol: Document 12/18/20 11:15 AW (Rec: 12/18/20 13:13 AW [email or web address]) Functional Tests Functional Gait Assessment Score 25 Functional Gait Assessment Impairment 1 to <20% Impaired (Score 25- Rating 29) PT-OP-H Neuro Start: 12/18/20 08:37 Freq: Status: Active Protocol: Document 12/18/20 11:15 AW (Rec: 12/18/20 13:27 AW [email or web address]) Sensation Evaluation Gross Sensation Gross Sensation Right UE Impaired,Right LE Impaired Sensation Description Numbness,Heaviness Comments Summary Comments Dull light touch sensation throughout right upper and lower extremities. Pt does note sensation of heaviness and pressure in distal right thigh. Coordination Evaluation Comments Coordination Comments Signs of dysmetria on right side with finger to nose and finger braulio testing. Dysdiadochokinesia is present with rapid alternating pronation/supination. Foot tapping test produces involuntary movements and poor coordination RLE. Deep Tendon Reflex & Clonus Assessment Deep Tendon Reflex Left Achilles Deep Tendon Reflex 1+ Diminished Left Patellar Deep Tendon Reflex 2+ Normal Left Bicep Deep Tendon Reflex 1+ Diminished Right Achilles Deep Tendon Reflex 0 Absent Right Patellar Deep Tendon Reflex 1+ Diminished Right Bicep Deep Tendon Reflex 0 Absent PT-OP-K Range of Motion Start: 12/18/20 08:37 Freq: Status: Active Protocol: Document 12/18/20 11:15 AW (Rec: 12/18/20 13:27 AW [email or web address]) Shoulder Goniometric Range of Motion Shoulder bilateral Comments All UE ROM WNL Hip Goniometric Range of Motion Hip ROM Limitations Comments All LE ROM WNL PT-OP-M Strength Start: 12/18/20 08:37 Freq: Status: Active Protocol: Document 12/18/20 11:15 AW (Rec: 12/18/20 13:27 AW [email or web address]) Trunk Strength Trunk Manual Muscle Testing Testing Position Sitting Comments All trunk strength WNL Shoulder Strength Shoulder Manual Muscle Testing Right Flexion 4 Good Abduction (C5) 4 Good External Rotation 4 Good Internal Rotation 4 Good Comments LUE grossly 5/5 Elbow/Forearm Strength Elbow and Forearm Manual Muscle Testing Right Flexion (C6) 4+ Good+ Extension (C7) 4 Good Comments Left 5/5 Hand Spinning Lathe Operator/Pinch Strength Hand Dominance Hand Dominance Right Hand Strength Right Comments 4/5 compared with 5/5 right side. Knee Strength Knee Manual Muscle Testing Right Flexion (S2) 4 Good Extension (L3) 4+ Good+ Comments left knee 5/5 Ankle/Foot Strength Ankle and Foot Manual Muscle Testing Right Dorsiflexion (L4) 4+ Good+ Plantarflexion (S1) 4 Good Comments left ankle 5/5 PT-OP-O Vestibular Start: 12/18/20 08:37 Freq: Status: Active Protocol: Document 12/18/20 11:15 AW (Rec: 12/18/20 13:29 AW [email or web address]) Vestibular Assessment Comments Vestibular Comments Vestibular screening WNL including head thrust. Good gaze stability. No signs of vestibular involvement. PT-OP-Q Treatments Start: 12/18/20 08:37 Freq: Status: Active Protocol: Document 01/03/21 14:30 AW (Rec: 01/03/21 14:33 AW [id number]) Cardio Equipment Recumbent Elliptical (Biodex) Duration (Minutes) 6 Resistance 4 Seat Position 9 Other for UE/LE coordination Gym Equipment Shuttle Balance red chains Details NBOS, arm movements Reps/Duration 5 min Comments Pt able to stand NBOS and swing arms together and reciprocating SBA. Sport Cord red Cord/Resistance red Comments resisted ambulation, resisted step ups - fwd and lateral, resisted sit to stand Therapeutic Exercises Standing Exercises SL stance Standing Exercise Name SL stance on foam Side bilateral Equipment Used rail available for prn support but not needed Reps/Minutes 20-30 sec gastroc/soleus stretch Standing Exercise Name gastroc/soleus stretch Side bilateral Equipment Used 6 step Reps/Minutes 30 SH x 4 Comments alternating with heel raises Gait Training Gait Activity stairs Description stairs Device Used L rail ascending Level of Assistance SBA Distance/Duration 5 min Treatment Focus proprioception; foot placement Comments Practiced on lobby stairs 14 x 4 with emphasis on full right foot placed on step vs initially observed with only forefoot on step especially ascending. level surface with cog load Description level surface with cog load Device Used no AD Level of Assistance SBA Surface tile, carpet Distance/Duration 8 min Treatment Focus walking while talking Comments Walking and talking. Pt was asked to name stringed instruments (with which he is well familiar). Naming was challenging. Speed more consistent with cognitive load today. PT-OP-T Assessment and Plan Start: 12/18/20 08:37 Freq: Status: Active Protocol: Document 01/03/21 14:30 AW (Rec: 01/03/21 16:25 AW [email or web address]) Physical Therapy Assessment Other Concerns Fall Risk low per FGA score of 25/30 Goals Four Impairment dynamic balance Central Office Inspector Goal (LTG) Pt will improve FGA score from 25/30 to 28/30 or greater for reduced falls risk and balance concordant with norms for age-matched peers. LTG Duration 3 months - 03/20/21 Three Impairment coordination RUE Central Office Inspector Goal (LTG) Pt will practice percussion instrument of choice for 30 minutes as evidence of improved UE coordination. LTG Duration 3 months - 03/20/21 Two Impairment limited standing tolerance Care Home Goal (LTG) Pt will stand 60 minutes for improved ability to participate in musical endeavors. LTG Duration 3 months - 03/20/21 One Impairment lacks HEP Short Term Goal (STG) Pt will be instructed in HEP for LE strength and coordination STG Duration 6 weeks - 01/29/21 Care Home Goal (LTG) Pt will be independent with maintenance HEP for LE strength and coordination. LTG Duration 3 months - 03/20/21 Assessment Summary Assessment Karissa had difficulty with resisted step ups leading with his left leg. His gait with cognitive load continues to improve. Discussed likely discharge with pt within the next few sessions. Physical Therapy Plan Frequency and Duration Frequency of Treatment 1-2x/week Plan of Care Start Date 12/18/20 Plan of Care End Date 03/20/21 Therapeutic Interventions Therapeutic Interventions Balance Training,Coordination Training,Gait Training,Home Exercise Program,Manual Therapy,Neuromuscular Re- education,Patient/Caregiver Education,Self-Care/Home Management,Sensory Integration ,Therapeutic Activities, Therapeutic Exercises Next Visit Focus/Plan Next Note Type Treatment Note Next Visit Plan Continue coordination training especially cross body and UE/ LE coordination. Cognitive load with gait and coordination tasks.
--- NOTE | 2021-01-08 14:55 | PT.OTN ---
Current Diagnoses Cerebral infarction, unspecified (01/08/21) Hemiplegia and hemiparesis following cerebral infarction affecting right dominant side (01/08/21) Other lack of coordination (01/08/21) Physical Therapy Treatment Note PT-OP-A Visit Information Start: 12/18/20 08:37 Freq: Status: Active Protocol: Document 01/08/21 14:30 AW (Rec: 01/08/21 14:30 AW [id number]) Out-Patient Physical Therapy Visit Information Visit Information Visit Type Treatment Note Visit Start Time 13:50 Visit Stop Time 14:30 Total Visit Minutes 40 Visit Number 6 Number of VP PRODUCT Visits 0 Evaluation Information Evaluation Date 12/18/20 PT-OP-B Current Condition Start: 12/18/20 08:37 Freq: Status: Active Protocol: Document 12/18/20 11:15 AW (Rec: 12/18/20 08:51 AW [email or web address]) Current Condition History of Current Condition Onset Date 11/08/20 Current Complaints R-sided weakness and sensation disturbance s/p CVA History of Current Condition Pt was found down on 11/08/20 and treated with tPA and embolectomy for acute left ICA /MCA occlusion, 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 He spent a few weeks at inpatient rehab and was discharged home in early November. Prior to CVA, pt lived alone and was independent in all regards. 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 He now finds it difficult to stand long enough to engage in music making and has impaired speech (aphasia, paraphasia, word-finding challenges). He complains of right sided weakness, dull right-side sensation, and poor ability to know where his right limbs are in space. He now lives with his brother and mother. He states he and his brother provide assist for their mother. Yoav has a job that frequently takes him to [place] . Karissa is now able to complete all ADL's without assist. He denies falls. He gets tired more easily than usual. He is not currently driving and depends on his brother to take him to appointments. He misses the social and emotional aspects of music. Prior Treatments and Tests - IPR at [facility] following CVA. - Outpatient speech therapy concurrent with PT. Future Testing and Treatments Planned Pt has referral for outpatient OT but has not yet scheduled. Treatment Goals Patient/Caregiver Goals Hopes to return to driving. Interact socially around music . Personal Factors Other Personal Factors That May Effect Pt is strongly motivated to Therapy/Recovery return to independent driving and music-making. PT-OP-C Subjective Start: 12/18/20 08:37 Freq: Status: Active Protocol: Document 01/08/21 14:30 AW (Rec: 01/08/21 14:30 AW [id number]) OP-PT Subjective Patient Comments Patient Comments Pt picked up the fiddle since last visit and reports improving bow accuracy. PT-OP-D Balance Start: 12/18/20 08:37 Freq: Status: Active Protocol: Document 12/18/20 11:15 AW (Rec: 12/18/20 13:13 AW [email or web address]) Balance Tests Single Limb Standing Single Limb- Right 20 seconds with some evidence of instabilty Single Limb- Left >30 seconds stable PT-OP-E Functional Tests Start: 12/18/20 08:37 Freq: Status: Active Protocol: Document 12/18/20 11:15 AW (Rec: 12/18/20 13:13 AW [email or web address]) Functional Tests Functional Gait Assessment Score 25 Functional Gait Assessment Impairment 1 to <20% Impaired (Score 25- Rating 29) PT-OP-H Neuro Start: 12/18/20 08:37 Freq: Status: Active Protocol: Document 12/18/20 11:15 AW (Rec: 12/18/20 13:27 AW [email or web address]) Sensation Evaluation Gross Sensation Gross Sensation Right UE Impaired,Right LE Impaired Sensation Description Numbness,Heaviness Comments Summary Comments Dull light touch sensation throughout right upper and lower extremities. Pt does note sensation of heaviness and pressure in distal right thigh. Coordination Evaluation Comments Coordination Comments Signs of dysmetria on right side with finger to nose and finger braulio testing. Dysdiadochokinesia is present with rapid alternating pronation/supination. Foot tapping test produces involuntary movements and poor coordination RLE. Deep Tendon Reflex & Clonus Assessment Deep Tendon Reflex Left Achilles Deep Tendon Reflex 1+ Diminished Left Patellar Deep Tendon Reflex 2+ Normal Left Bicep Deep Tendon Reflex 1+ Diminished Right Achilles Deep Tendon Reflex 0 Absent Right Patellar Deep Tendon Reflex 1+ Diminished Right Bicep Deep Tendon Reflex 0 Absent PT-OP-K Range of Motion Start: 12/18/20 08:37 Freq: Status: Active Protocol: Document 12/18/20 11:15 AW (Rec: 12/18/20 13:27 AW [email or web address]) Shoulder Goniometric Range of Motion Shoulder bilateral Comments All UE ROM WNL Hip Goniometric Range of Motion Hip ROM Limitations Comments All LE ROM WNL PT-OP-M Strength Start: 12/18/20 08:37 Freq: Status: Active Protocol: Document 12/18/20 11:15 AW (Rec: 12/18/20 13:27 AW [email or web address]) Trunk Strength Trunk Manual Muscle Testing Testing Position Sitting Comments All trunk strength WNL Shoulder Strength Shoulder Manual Muscle Testing Right Flexion 4 Good Abduction (C5) 4 Good External Rotation 4 Good Internal Rotation 4 Good Comments LUE grossly 5/5 Elbow/Forearm Strength Elbow and Forearm Manual Muscle Testing Right Flexion (C6) 4+ Good+ Extension (C7) 4 Good Comments Left 5/5 Hand Sound Person/Pinch Strength Hand Dominance Hand Dominance Right Hand Strength Right Comments 4/5 compared with 5/5 right side. Knee Strength Knee Manual Muscle Testing Right Flexion (S2) 4 Good Extension (L3) 4+ Good+ Comments left knee 5/5 Ankle/Foot Strength Ankle and Foot Manual Muscle Testing Right Dorsiflexion (L4) 4+ Good+ Plantarflexion (S1) 4 Good Comments left ankle 5/5 PT-OP-O Vestibular Start: 12/18/20 08:37 Freq: Status: Active Protocol: Document 12/18/20 11:15 AW (Rec: 12/18/20 13:29 AW [email or web address]) Vestibular Assessment Comments Vestibular Comments Vestibular screening WNL including head thrust. Good gaze stability. No signs of vestibular involvement. PT-OP-Q Treatments Start: 12/18/20 08:37 Freq: Status: Active Protocol: Document 01/08/21 14:30 AW (Rec: 01/08/21 14:30 AW [id number]) Cardio Equipment Recumbent Elliptical (Biodex) Duration (Minutes) 6 Resistance 4 Seat Position 9 Other for UE/LE coordination Therapeutic Exercises Standing Exercises SL stance Standing Exercise Name SL stance on foam with visual confrontation; progressed to STAR taps Side bilateral Equipment Used rail available for prn support but not needed Reps/Minutes 30 sec Comments plaid surround board with head turns for static SL stance Gait Training Gait Activity level surface with cog load Description level surface with cog load Device Used no AD Level of Assistance SBA Surface tile, carpet Distance/Duration 8 min Treatment Focus walking while talking Comments Walking and talking. Pt was asked to name the notes of various musical scales. Speech was fairly automatic but required extra time. Speed continues to be more consistent with cognitive load today. Neuro Re-Education Treatment Coordination Activities TM beanbags Equipment treadmill, villalobos bags Reps/Duration 5 min Comments Pt stands on ground at end of treadmill. PT places colored villalobos bags on TM belt and turns on TM. Pt squats as bags reach end of belt. PT calls out 2 colors and pt retrieves the corresponding bags before they fall. Pt 75% success rate , reaching for correct color but reaction time is limiting factor. box step Details box step Speed 55-75 bpm Reps/Duration 5 min Comments With auditory cues provided by metronome. Pt increased speed with LE only to 75 bpm. With arm swing (one per square) , pt speed reduces to bpm PT-OP-T Assessment and Plan Start: 12/18/20 08:37 Freq: Status: Active Protocol: Document 01/03/21 14:30 AW (Rec: 01/03/21 16:25 AW [email or web address]) Physical Therapy Assessment Rehab Potential Rehabilitation Potential Good Evaluation Complexity Number of Personal Factors/Comorbidities 1-2 Number of Body Systems Impaired 3 Clinical Presentation at Evaluation Stable Impairments Impairments Activity Tolerance,Balance, Coordination,Functional Activities,Gait,Sensation, Strength Other Concerns Fall Risk low per FGA score of 25/30 Goals Four Impairment dynamic balance Assisted Goal (LTG) Pt will improve FGA score from 25/30 to 28/30 or greater for reduced falls risk and balance concordant with norms for age-matched peers. 01/08/21 - Not formally assessed. LTG Duration 3 months - 03/20/21 Three Impairment coordination RUE Rn Post Partum Goal (LTG) Pt will practice percussion instrument of choice for 30 minutes as evidence of improved UE coordination. 01/08/21 - Pt reports practicing fiordaliza whistle and fiddle at least 30 minutes at a time. LTG Duration 3 months - 03/20/21 Two Impairment limited standing tolerance Rn Post Partum Goal (LTG) Pt will stand 60 minutes for improved ability to participate in musical endeavors. 01/08/21 - Pt progressing and pleased with current tolerance . LTG Duration 3 months - 03/20/21 One Impairment lacks HEP Short Term Goal (STG) Pt will be instructed in HEP for LE strength and coordination 01/08/21 - MET STG Duration 6 weeks - 01/29/21 Rn Post Partum Goal (LTG) Pt will be independent with maintenance HEP for LE strength and coordination. 01/08/21 - MET LTG Duration 3 months - 03/20/21 Assessment Summary Assessment Karissa demonstrates no path deviation and no significant slowing during gait with cognitive load. He is aware of all obtacles and avoids them appropriately. His single leg balance and strength have improved significantly. Pt is satisfied with his ability to stand and practice fiordaliza whistle and fiddle. Pt's primary need is for speech therapy at this time and he agrees to discharge from PT. Physical Therapy Plan Frequency and Duration Frequency of Treatment 1-2x/week Plan of Care Start Date 12/18/20 Plan of Care End Date 03/20/21 Therapeutic Interventions Therapeutic Interventions Balance Training,Coordination Training,Gait Training,Home Exercise Program,Manual Therapy,Neuromuscular Re- education,Patient/Caregiver Education,Self-Care/Home Management,Sensory Integration ,Therapeutic Activities, Therapeutic Exercises Discharge Physical Therapy Discharge Reasons Goals Met Discharge Comments Gait speed with cognitive load , single leg balance and strength, and UE/LE coordination have progressed well. Pt has met or exceeded all PT goals. As his primary need at this time is speech therapy, pt and PT agree to discharge PT. Pt understands he may return but will need a new referral.
== END 2021-03-19 09:36 ==
LOC: PHYS 13:45
PROVIDERS: Family Provider Physician Assistant Medical; PCP Physician Assistant Medical; Referring Provider Physical Medicine & Rehabilitation; Visit Provider Physical Medicine & Rehabilitation
DX: I63.9 Cerebral infarction, unspecified (principal); I69.351 Hemiplegia and hemiparesis following cerebral infarction affecting right dominant side; R27.8 Other lack of coordination
CPT/HCPCS: 97110; 97112; 97116; 97162

== ENCOUNTER 2021-10-04 13:30 | Outpatient (RCR) | payer OTHER, MEDICAID, SELFPAY ==
--- NOTE | 2020-12-10 13:22 | ST.OPIE ---
Visit Care Team Role Provider Type Catalina Greenberg PA-C Family Provider Non-Staff Primary Care Provider Specialty: Medical Address: [address] [place], [address] Email: José Quinn MD Attending Provider Non-Staff Referring Provider Specialty: Medical Address: [address] [place] [address], [id number] Email: Speech-Language Pathology Initial Evaluation CALL CENTER TRAINER Adult Cognitive Linguistic Eval Start: 12/10/20 11:48 Freq: Status: Active Protocol: Document 12/10/20 12:13 LNK (Rec: 12/10/20 13:21 LNK [email or web address]) Adult Cognitive Linguistic Evaluation Session Time Visit Start Time 10:30 Visit Stop Time 11:30 Total Visit Minutes 60 Visit Information Visit Number 1 Plan of Care Dates 12/10/20-02/15/21 Insurance Information [facility] Referral Referring Provider Dr. 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 He was admitted to [facility] in [place], [place]. He also completed inpt rehab (OT, PT,ST) at [facility]. He was discharged from rehab on 11/23/20. Pt takes care of and lives with his mother who has early dementia. Pt was accompanied by his his brother , Yoav, who provided background and history. Hearing Hearing Level Normal Vision Vision Status Impaired Comments wears glasses Previous Therapy Previous Speech-Language Therapy Yes: at [facility] Subjective Patient Report Initially, pt had difficulty expressing himself. His brother, Yoav was asked to come into the session for assistance. Assessment Oral Motor Examination Completed No Informal Assessment Receptive Language Normal No: apparent deficits Receptive Language Impairment(s) Following 1-step commands Expressive Language Normal Yes Expressive Language Impairment(s) Sentence closure/completion, Confrontation naming,Divergent naming,Expression of basic wants/needs,Expression of complex thoughts/ideas,Written expression Pragmatic Language Normal Appeared to have a flat affect Pragmatic Language Impairment(s) Flat affect Speech Normal No Speech Impairment(s) Imprecise articulation,Slow speech rate,Decreased volume/ intensity,Prosody/Intonation Cognitive Impairment(s) Attention,Short-term memory, Thought organization Formal Assessment Standardized Test/Screener Type [facility] Mental Status (SLUMS) Administration Complete Results The majority of the initial session was spent gathering PMH and current rehab status from the pt and his brother. The SLUMS was given to the pt as a screening of his cognition. Pt scored 12/30, which indicates a moderate- severe cognitive decline. Pt was oriented to date and place . Mental math was challenging as was divergent naming and clock drawing. He could remember 2 of 5 words with delayed recall. He was able to answer 1 of 4 questions pertaining to a story read aloud to him. Because of the pt's aphasia, the results of the SLUMS may have been influenced by his word-finding difficulty. During the SLUMS the following informal observations noted: perseveration, paraphasias, word-finding difficulty, short term and working memory deficits. Findings/Results Language Function Moderately-severely impaired Cognitive Function Moderately-severely impaired Findings The results of the SLUMS indicates a need to further assess pt's cognition. Additonally, a full assessment of pt's aphasia/communication skills will be conducted. Cognitive Communication Deficits Self-awareness of Cognitive- Situational awareness ( Communication Deficits recognition of problem in context;in real time) Plan of Care Speech-Language Treatment Yes Frequency 1x/week Patient/Caregiver Education Described results of evaluation,Patient requires further education/training, Family/caregivers require further education/training Short Term Goals Complete cognitive and aphasia evaluations
--- NOTE | 2020-12-10 13:22 | ST.OPPOC ---
Physical, Occupational & Speech Therapy At [facility] Visit Care Team Role Provider Type Catalina Greenberg PA-C Family Provider Non-Staff Primary Care Provider Address: [address] [place] [address], [place], [address] José Quinn MD Attending Provider Non-Staff Referring Provider Address: [address] [place] [address], [id number] Speech Pathology Plan of Care Plan of Care Dates 12/10/20-02/15/21 Language Function Moderately-severely impai Cognitive Function Moderately-severely impai Findings The results of the SLUMS indicates a need to further assess pt's cognition. Additonally, a full assessment of pt's aphasia/communication skills will be conducted. Short Term Goals Complete cognitive and aphasia evaluations Electronically Signed by: LUCINA Sharpe 12/10/20 1399 Please Sign and Return: I have reviewed this Plan of Care and certify that the skilled therapy services above are required to meet the patient?s needs. Physician Signature Date Printed Name and Credentials Clinical Instructor Signature Printed Name and Credentials
--- NOTE | 2020-12-18 16:59 | ST.OPTN ---
Visit Care Team Role Provider Type Catalina Greenberg PA-C Family Provider Non-Staff Primary Care Provider Address: [address] [place] [address], [phone] José Quinn MD Attending Provider Non-Staff Referring Provider Address: [address] [place] [address], [address] CAR CUSTOMIZER Treatment Note CAR CUSTOMIZER Treatment Note Start: 12/10/20 11:48 Freq: Status: Active Protocol: Document 12/18/20 16:42 LNK (Rec: 12/18/20 16:57 LNK [email or web address]) Speech Pathology Treatment Note Session Time Visit Start Time 11:30 Visit Stop Time 12:30 Total Visit Minutes 60 Visit Information Visit Number 2 Plan of Care Dates 12/10/20-02/15/21 Setting Treatment Setting Outpatient Care Visit Type Note Type Treatment Note Next Note Type Next Note Type Treatment Note General Information General Information Pt is a 50 year old male who suffered an 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 He was admitted to [facility] in [place], [place]. He also completed inpt rehab (OT, PT,ST) at [facility]. He was discharged from rehab on 11/23/20. Pt takes care of and lives with his mother who has early dementia. Subjective Identification Type Name,Date of Identification Reconciled With Medical Record Observations/Patient Presentation Pt arrived by himself on time. He had just finished PT. pt was more verbal and interactive today. Chief Complaint(s) Speech,Language Patient Knowledge/Awareness of CAR CUSTOMIZER Role Good in Treatment Parent/Caretake Knowledge/Awareness of Good CAR CUSTOMIZER Role in Treatment Objective Short Term Goals 1) Pt will identify situations for which information will be written. He will work on completing provided forms for emergency and other ADLs to complete 2) Script therapy will be used as an external strategy to assist pt in his expression of needs to others re: emergency , needs, and requests as indicated 3) Melodic intonation therapy will be used to tap into pt's music background and aid him in expressing himself to others. 4) Pt will use word-finding strategies to enable him to recall and/or communicate to others. Treatment Activities The Western Aphasia Battery bedside screening assessment was used to determine communication ability. 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 pt demonstrated better writing and reading skills than speaking skills. Assessment Patient Response to Treatment Excellent Rehab Potential Excellent Impairments Identified Aphasia,Expressive Language Plan Amount of Therapy Recommended 3-4 Months Frequency of Treatment Once a Week Length of Session 60 Minutes Therapeutic Contents Expressive Language Training, Home Exercise Program
--- NOTE | 2020-12-25 15:02 | ST.OPTN ---
Visit Care Team Role Provider Type Catalina Greenberg PA-C Family Provider Non-Staff Primary Care Provider Address: [address] [place] [address], [id number] José Quinn MD Attending Provider Non-Staff Referring Provider Address: [address] [place] [address], [id number] SOCK LINING EXAMINER Treatment Note SOCK LINING EXAMINER Treatment Note Start: 12/10/20 11:48 Freq: Status: Active Protocol: Document 12/25/20 14:36 LNK (Rec: 12/25/20 15:00 [email or web address]) Speech Pathology Treatment Note Session Time Visit Start Time 11:30 Visit Stop Time 12:30 Total Visit Minutes 60 Visit Information Visit Number 3 Plan of Care Dates 12/10/20-02/15/21 Setting Treatment Setting Outpatient Care Visit Type Note Type Treatment Note Next Note Type Next Note Type Treatment Note General Information General Information Pt is a 50 year old male who sufferred an 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 He was admitted to [facility] in [place], [place]. He also completed inpt rehab (OT, PT,ST) at [facility]. He was discharged from rehab on 11/23/20. Pt takes care of and lives with his mother who has early dementia. Subjective Identification Type Name,Date of Identification Reconciled With Medical Record Observations/Patient Presentation Pt arrived by himself on time. He had just finished PT. Pt was more verbal and interactive today. Chief Complaint(s) Speech,Language Patient Knowledge/Awareness of SOCK LINING EXAMINER Role Good in Treatment Parent/Caretake Knowledge/Awareness of Good SOCK LINING EXAMINER Role in Treatment Objective Short Term Goals 1) Pt will identify situations for which information will be written. He will work on completing provided forms for emergency and other ADLs to complete 2) Script therapy will be used as an external strategy to assist pt in his expression of needs to others re: emergency , needs, and requests as indicated 3) Melodic intonation therapy will be used to tap into pt's music background and aid him in expressing himself to others. 4) Pt will use word-finding strategies to enable him to recall and/or communicate to others. Treatment Activities Reviewed the results of the Western Screening assessment with the pt. his strength is his reading. Receptive language is intact. He demonstrated that he can sing without difficulty. Introduced Script therapy as a means to assist pt with emergency statements and to set scripts to use/practice in orderto help communication. Melodic intonation was also discussed. Lingraphica apps for scripts and/or sentences to practice at home were demonstrated with the pt reading the sentences aloud. No apparent difficulty reading/verbalizing was observed. Assessment Patient Response to Treatment Excellent Rehab Potential Excellent Impairments Identified Aphasia,Expressive Language Progress Towards Goals Good Progress Plan Amount of Therapy Recommended 6 Months Frequency of Treatment Once a Week Length of Session 60 Minutes Therapeutic Contents Expressive Language Training, Home Exercise Program Therapy Recommendations Continue with Current Program
--- NOTE | 2021-01-03 16:44 | ST.OPTN ---
Visit Care Team Role Provider Type Catalina Greenberg PA-C Family Provider Non-Staff Primary Care Provider Address: [address] [place] [address], [id number] José Quinn MD Attending Provider Non-Staff Referring Provider Address: [address] [place] [address], [id number] BOX MAKER Treatment Note BOX MAKER Treatment Note Start: 12/10/20 11:48 Freq: Status: Active Protocol: Document 01/03/21 16:19 LNK (Rec: 01/03/21 16:44 [email or web address]) Speech Pathology Treatment Note Session Time Visit Start Time 14:30 Visit Stop Time 15:30 Total Visit Minutes 60 Visit Information Visit Number 4 Plan of Care Dates 12/10/20-02/15/21 Setting Treatment Setting Outpatient Care Visit Type Note Type Treatment Note Next Note Type Next Note Type Treatment Note General Information General Information Pt is a 50 year old male who sufferred an 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 He was admitted to [facility] in [place], [place]. He also completed inpt rehab (OT, PT,ST) at [facility]. He was discharged from rehab on 11/23/20. Pt takes care of and lives with his mother who has early dementia. Subjective Identification Type Name,Date of Identification Reconciled With Medical Record Observations/Patient Presentation Pt arrived by himself on time. He had just finished PT. Pt was more verbal and interactive today. Chief Complaint(s) Speech,Language Patient Knowledge/Awareness of BOX MAKER Role Good in Treatment Parent/Caretake Knowledge/Awareness of Good BOX MAKER Role in Treatment Objective Short Term Goals 1) Pt will identify situations for which information will be written. He will work on completing provided forms for emergency and other ADLs to complete 2) Script therapy will be used as an external strategy to assist pt in his expression of needs to others re: emergency , needs, and requests as indicated 3) Melodic intonation therapy will be used to tap into pt's music background and aid him in expressing himself to others. 4) Pt will use word-finding strategies to enable him to recall and/or communicate to others. Treatment Activities Pt reported that he is doing well. He noted that he and his brother are talking about their mother and her needs when she can't stay at home. Targeting word-finding skills using common phrases to complete. Pt was able to complete 20/20 with some struggle, but well done! provided written homework of the same. Also described and provided a list of word finding strategies for him.. pt was appreciative. Assessment Patient Response to Treatment Excellent Rehab Potential Excellent Impairments Identified Aphasia,Expressive Language Progress Towards Goals Good Progress Plan Amount of Therapy Recommended 6 Months Frequency of Treatment Once a Week Length of Session 60 Minutes Therapeutic Contents Expressive Language Training, Home Exercise Program Therapy Recommendations Continue with Current Program
--- NOTE | 2021-01-08 17:00 | ST.OPTN ---
Visit Care Team Role Provider Type Catalina Greenberg PA-C Family Provider Non-Staff Primary Care Provider Address: [address] [place] [address], [id number] José Quinn MD Attending Provider Non-Staff Referring Provider Address: [address] [place] [address], [id number] AGENCY SALES REPRESENTATIVE Treatment Note AGENCY SALES REPRESENTATIVE Treatment Note Start: 12/10/20 11:48 Freq: Status: Active Protocol: Document 01/08/21 16:55 LNK (Rec: 01/08/21 17:00 LNK [email or web address]) Speech Pathology Treatment Note Session Time Visit Start Time 14:30 Visit Stop Time 15:30 Total Visit Minutes 60 Visit Information Visit Number 5 Plan of Care Dates 12/10/20-02/15/21 Setting Treatment Setting Outpatient Care Visit Type Note Type Treatment Note Next Note Type Next Note Type Treatment Note General Information General Information Pt is a 50 year old male who suffered an 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 He was admitted to [facility] in [place], [place]. He also completed inpt rehab (OT, PT,ST) at [facility]. He was discharged from rehab on 11/23/20. Pt takes care of and lives with his mother who has early dementia. Subjective Identification Type Name,Date of Identification Reconciled With Medical Record Observations/Patient Presentation Pt arrived by himself on time. He had just finished PT. Pt was more verbal and interactive today. Chief Complaint(s) Speech,Language Patient Knowledge/Awareness of AGENCY SALES REPRESENTATIVE Role Good in Treatment Parent/Caretake Knowledge/Awareness of Good AGENCY SALES REPRESENTATIVE Role in Treatment Objective Short Term Goals 1) Pt will identify situations for which information will be written. He will work on completing provided forms for emergency and other ADLs to complete 2) Script therapy will be used as an external strategy to assist pt in his expression of needs to others re: emergency , needs, and requests as indicated 3) Melodic intonation therapy will be used to tap into pt's music background and aid him in expressing himself to others. 4) Pt will use word-finding strategies to enable him to recall and/or communicate to others. Treatment Activities Pt reported that he is doing well. Targeting word-finding skills the game Password. Karissa was both the recipient and provider of the target words ( 4 words as the provider and 4 words as recipient). Karissa was able to provide good cues 4/4 to this AGENCY SALES REPRESENTATIVE and was able to say the correct words 4/4. Good session. Listed words for Karissa and his brother to complete at home. Assessment Patient Response to Treatment Excellent Rehab Potential Excellent Impairments Identified Aphasia,Expressive Language Progress Towards Goals Good Progress Plan Amount of Therapy Recommended 6 Months Frequency of Treatment Once a Week Length of Session 60 Minutes Therapeutic Contents Expressive Language Training, Home Exercise Program Therapy Recommendations Continue with Current Program
--- NOTE | 2021-01-18 17:24 | ST.OPTN ---
Visit Care Team Role Provider Type Catalina Greenberg PA-C Family Provider Non-Staff Primary Care Provider Address: [address] [place] [address], [id number] José Quinn MD Attending Provider Non-Staff Referring Provider Address: [address] [place] [address], [id number] ROUTING CLERK Treatment Note ROUTING CLERK Treatment Note Start: 12/10/20 11:48 Freq: Status: Active Protocol: Document 01/15/21 17:16 LNK (Rec: 01/18/21 17:23 LNK [email or web address]) Speech Pathology Treatment Note Session Time Visit Start Time 14:30 Visit Stop Time 15:30 Total Visit Minutes 60 Visit Information Visit Number 6 Plan of Care Dates 12/10/20-02/15/21 Insurance Information last authorized appt Setting Treatment Setting Outpatient Care Visit Type Note Type Treatment Note Next Note Type Next Note Type Treatment Note General Information General Information Pt is a 50 year old male who sufferred an 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 He was admitted to [facility] in [place], [place]. He also completed inpt rehab (OT, PT,ST) at [facility]. He was discharged from rehab on 11/23/20. Pt takes care of and lives with his mother who has early dementia. Subjective Identification Type Name,Date of Identification Reconciled With Medical Record Observations/Patient Presentation Pt arrived by himself on time. He had just finished PT. Pt was more verbal and interactive today. Chief Complaint(s) Speech,Language Patient Knowledge/Awareness of ROUTING CLERK Role Good in Treatment Parent/Caretake Knowledge/Awareness of Good ROUTING CLERK Role in Treatment Objective Short Term Goals 1) Pt will identify situations for which information will be written. He will work on completing provided forms for emergency and other ADLs to complete 2) Script therapy will be used as an external strategy to assist pt in his expression of needs to others re: emergency , needs, and requests as indicated 3) Melodic intonation therapy will be used to tap into pt's music background and aid him in expressing himself to others. 4) Pt will use word-finding strategies to enable him to recall and/or communicate to others. Treatment Activities Pt reported that he is doing well. Targeting word-finding skills with idioms. Karissa was able to complete 15 idioms with min to mod difficulty. He refused cues offered. He eventually was able to complete on his own. Discussed neuroplasticity and the importance of repetition with frequency. Assessment Patient Response to Treatment Excellent Rehab Potential Excellent Impairments Identified Aphasia,Expressive Language Progress Towards Goals Good Progress Plan Amount of Therapy Recommended 6 Months Frequency of Treatment Once a Week Length of Session 60 Minutes Therapeutic Contents Expressive Language Training, Home Exercise Program Therapy Recommendations Continue with Current Program
--- NOTE | 2021-02-22 17:04 | ST.OPTN ---
Visit Care Team Role Provider Type Catalina Greenberg PA-C Family Provider Non-Staff Primary Care Provider Address: [address], [address] José Quinn MD Attending Provider Non-Staff Referring Provider Address: [address] [place] [address], [address] THERAPY SITE COORDINATOR Treatment Note THERAPY SITE COORDINATOR Treatment Note Start: 12/10/20 11:48 Freq: Status: Active Protocol: Document 02/22/21 16:38 LNK (Rec: 02/22/21 17:02 LNK [id number]) Speech Pathology Treatment Note Session Time Visit Start Time 14:30 Visit Stop Time 15:30 Total Visit Minutes 60 Visit Information Visit Number 1 Plan of Care Dates 02/22/21-06/22/21 Insurance Information new auth for 6 visits 2021 Setting Treatment Setting Outpatient Care Visit Type Note Type Re-Evaluation Next Note Type Next Note Type Treatment Note General Information General Information Pt is a 50 year old male who sufferred an 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 He was admitted to [facility] in [place], [place]. He also completed inpt rehab (OT, PT,ST) at [facility]. He was discharged from rehab on 11/23/20. Pt takes care of and lives with his mother who has early dementia. Subjective Identification Type Name,Date of Identification Reconciled With Medical Record Observations/Patient Presentation Pt arrived by himself on time. He had just finished PT. Pt was more verbal and interactive today. Chief Complaint(s) Speech,Language Patient Knowledge/Awareness of THERAPY SITE COORDINATOR Role Good in Treatment Parent/Caretake Knowledge/Awareness of Good THERAPY SITE COORDINATOR Role in Treatment Objective Short Term Goals 1) Pt will identify situations for which information will be written. 2) Scripts will be developed as an external strategy for expressing needs when there is an emergency 3) Pt will use word-finding strategies from 70 % to 85-90% of the time 4) Caven will increase rate of speech through improvement of word finding ability. Treatment Activities Reassessment of pt's communication abilities. Informal observations were used, along with discussion with the pt relative to his functional needs. Pt reported that he wants to contribute to conversations without interrupting the flow and exchanges between conversants. Additionally he continues to have word-finding difficulty, although he reports improvement. When shown a set of 12 pictures of common objects, he was able to name 9 /12. His speech rate continues to be slow and he would like to work increasing rate. Reviewed initial goald and will modify goals to reflect his functional needs. Assessment Patient Response to Treatment Excellent Rehab Potential Excellent Impairments Identified Aphasia,Expressive Language Progress Towards Goals Good Progress Assessment of Improvement Pt reported that he is doing well. He reported that he has been doing homework consistently and that he feels he has made excellent progress across all goals. Plan Amount of Therapy Recommended 6 Months Frequency of Treatment Once a Week Length of Session 60 Minutes Therapeutic Contents Expressive Language Training, Home Exercise Program Therapy Recommendations Continue with Current Program
--- NOTE | 2021-02-22 17:05 | ST.OPPOC ---
Physical, Occupational & Speech Therapy At [facility] Visit Care Team Role Provider Type Catalina Greenberg PA-C Family Provider Non-Staff Primary Care Provider Address: [address] [address], [place], [address] José Quinn MD Attending Provider Non-Staff Referring Provider Address: [address] [place] [address], [address] Speech Pathology Plan of Care General Information Pt is a 50 year old male who sufferred an acute left ICA/MCA occlusion on 11/08/20. He was admitted to [facility] in [place], [place]. He also completed inpt rehab (OT,PT,ST) at [facility]. He was discharged from rehab on 11/23/20. Pt takes care of and lives with his mother who has early dementia. Visit Number 1 Plan of Care Dates 02/22/21-06/22/21 Insurance Information [facility] for 6 visits 2021 Patient Comments Pt arrived by himself on time. He had just finished PT. Pt was more verbal and interactive today. Chief Complaint(s) Speech,Language Patient Knowledge/Awareness of Good CARGO MATE Role in Treatment Parent/Caretake Knowledge/ Good Awareness of CARGO MATE Role in Treatment Language Function Moderately-severely impai Cognitive Function Moderately-severely impai Findings The results of the SLUMS indicates a need to further assess pt's cognition. Additonally, a full assessment of pt's aphasia/communication skills will be conducted. Short Term Goals 1) Pt will identify situations for which information will be written. 2) Scripts will be developed as an external strategy for expressing needs when there is an emergency 3) Pt will use word-finding strategies from 70 % to 85-90% of the time 4) Caven will increase rate of speech through improvement of word finding abilty. Treatment Activities Reassessment of pt's communication abilities. Informal observations were used, along with discussion with the pt relative to his functional needs. Pt reported that he wants to contribute to conversations without interrupting the flow and exchanges between conversants. Additionally he continues to have word-finding difficulty, although he reports improvement. When shown a set of 12 pictures of common objects , he was able to name 9/12. His speech rate continues to be slow and he would like to work increasing rate. Reviewed initial goald and will modify goals to reflect his functional needs. Rehabilitation Potential Excellent Impairments Identified Aphasia,Expressive Language Progress Towards Goals Good Progress Assessment of Improvement Pt reported that he is doing well. He reported that he has been doing homework consistently and that he feels he has made excellent progress across all goals. Amount of Therapy Recommended 6 Months Frequency of Treatment Once a Week Length of Session 60 Minutes Therapeutic Contents Expressive Language Train,Home Exercise Program Patient Recommendations Continue with Current Pro Electronically Signed by: Jennifer Lynch, CARGO MATE 02/22/21 1133 Please Sign and Return: I have reviewed this Plan of Care and certify that the skilled therapy services above are required to meet the patient?s needs. Physician Signature Date Printed Name and Credentials Clinical Instructor Signature Printed Name and Credentials
--- NOTE | 2021-03-08 14:23 | ST.OPTN ---
Visit Care Team Role Provider Type Catalina Greenberg PA-C Family Provider Non-Staff Primary Care Provider Address: [address], [address] José Quinn MD Attending Provider Non-Staff Referring Provider Address: [address] [place] [address], [address] MERCHANDISE PLANNING MANAGER Treatment Note MERCHANDISE PLANNING MANAGER Treatment Note Start: 12/10/20 11:48 Freq: Status: Active Protocol: Document 03/08/21 14:08 LNK (Rec: 03/08/21 14:23 LNK [id number]) Speech Pathology Treatment Note Session Time Visit Start Time 11:30 Visit Stop Time 12:30 Total Visit Minutes 60 Visit Information Visit Number 2 Plan of Care Dates 02/22/21-06/22/21 Insurance Information new auth for 6 visits 2021 Setting Treatment Setting Outpatient Care Visit Type Note Type Re-Evaluation Next Note Type Next Note Type Treatment Note General Information General Information Pt is a 50 year old male who suffered an 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 He was admitted to [facility] in [place], [place]. He also completed inpt rehab (OT, PT,ST) at [facility]. He was discharged from rehab on 11/23/20. Pt takes care of and lives with his mother who has early dementia. Subjective Identification Type Name,Date of Identification Reconciled With Medical Record Observations/Patient Presentation Pt arrived by himself on time. He had just finished PT. Pt was more verbal and interactive today. Chief Complaint(s) Speech,Language Patient Knowledge/Awareness of MERCHANDISE PLANNING MANAGER Role Good in Treatment Parent/Caretake Knowledge/Awareness of Good MERCHANDISE PLANNING MANAGER Role in Treatment Objective Short Term Goals 1) Pt will identify situations for which information will be written. 2) Scripts will be developed as an external strategy for expressing needs when there is an emergency 3) Pt will use word-finding strategies from 70 % to 85-90% of the time 4) Caven will increase rate of speech through improvement of word finding ability. Treatment Activities Organization and categorization were targeted today to assist patient in word retrieval and/or to aid in short term memory. Using the category animals, sorting into types (farm, zoo, etc), then using visualization to aid memory further. Goal, Plan, Do strategy described and demonstrated for pt to help him to organize his seasonal chores around the yard . pt is resistant to using written forms of memory strategies. homework to list difficult chores as they occur during the week for us to target next session. Assessment Patient Response to Treatment Excellent Rehab Potential Excellent Impairments Identified Aphasia,Expressive Language Progress Towards Goals Good Progress Assessment of Improvement Pt reported that he is doing well. He reported that he has been doing homework consistently and that he feels he has made excellent progress across all goals. Plan Amount of Therapy Recommended 6 Months Frequency of Treatment Once a Week Length of Session 60 Minutes Therapeutic Contents Expressive Language Training, Home Exercise Program Therapy Recommendations Continue with Current Program
--- NOTE | 2021-03-22 17:16 | ST.OPTN ---
Visit Care Team Role Provider Type Catalina Greenberg PA-C Family Provider Non-Staff Primary Care Provider Address: [address], [address] José Quinn MD Attending Provider Non-Staff Referring Provider Address: [address] [place] [address], [id number] PACKAGE DELIVERY ROOM SERVICE RUNNER Treatment Note PACKAGE DELIVERY ROOM SERVICE RUNNER Treatment Note Start: 12/10/20 11:48 Freq: Status: Active Protocol: Document 03/22/21 14:35 LNK (Rec: 03/22/21 17:16 LNK [id number]) Speech Pathology Treatment Note Session Time Visit Start Time 14:30 Visit Stop Time 15:15 Total Visit Minutes 45 Visit Information Visit Number 3 Plan of Care Dates 02/22/21-06/22/21 Insurance Information new auth for 6 visits 2021 Setting Treatment Setting Outpatient Care Visit Type Note Type Treatment Note Next Note Type Next Note Type Treatment Note General Information General Information Pt is a 50 year old male who sufferred an 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 He was admitted to [facility] in [place], [place]. He also completed inpt rehab (OT, PT,ST) at [facility]. He was discharged from rehab on 11/23/20. Pt takes care of and lives with his mother who has early dementia. Subjective Identification Type Name,Date of Identification Reconciled With Medical Record Observations/Patient Presentation Pt arrived by himself on time. He had just finished PT. Pt was more verbal and interactive today. Chief Complaint(s) Speech,Language Patient Knowledge/Awareness of PACKAGE DELIVERY ROOM SERVICE RUNNER Role Good in Treatment Parent/Caretake Knowledge/Awareness of Good PACKAGE DELIVERY ROOM SERVICE RUNNER Role in Treatment Objective Short Term Goals 1) Pt will identify situations for which information will be written. 2) Scripts will be developed as an external strategy for expressing needs when there is an emergency 3) Pt will use word-finding strategies from 70 % to 85-90% of the time 4) Caven will increase rate of speech through improvement of word finding ability. Treatment Activities pt reported he had a good week . He was able to express himself with minimal interruption. His word finding difficulty did not interfere with ongoing conversation. Assessment Patient Response to Treatment Excellent Rehab Potential Excellent Impairments Identified Aphasia,Expressive Language Progress Towards Goals Good Progress Assessment of Improvement Pt reported that he is doing well. He reported that he has been doing homework consistently. We discussed the possibility of driving to [email or web address], or [employer] or even [employer] and walk around the ponce and greet people, maybe strike up conversations. Initially he was resistant, but later agreed that he could venture out and try. Plan Amount of Therapy Recommended 6 Months Frequency of Treatment Once a Week Length of Session 60 Minutes Therapeutic Contents Expressive Language Training, Home Exercise Program Therapy Recommendations Continue with Current Program
--- NOTE | 2021-04-08 13:39 | ST.OPRE ---
Visit Care Team Role Provider Type Catalina Greenberg PA-C Family Provider Non-Staff Primary Care Provider Specialty: Medical Address: [address], [address] Email: José Quinn MD Attending Provider Non-Staff Referring Provider Specialty: Medical Address: [address] [place] [address], [id number] Email: Speech-Language Pathology Evaluation/Summary BUSINESS PROCESS ANALYST Adult Cognitive Linguistic Eval Start: 12/10/20 11:48 Freq: Status: Active Protocol: Document 12/10/20 12:13 LNK (Rec: 12/10/20 13:21 LNK [email or web address]) Adult Cognitive Linguistic Evaluation Session Time Visit Start Time 10:30 Visit Stop Time 11:30 Total Visit Minutes 60 Visit Information Visit Number 1 Plan of Care Dates 12/10/20-02/15/21 Insurance Information [facility] Plan Referral Referring Provider Dr. 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 He was admitted to [facility] in [place], [place]. He also completed inpt rehab (OT, PT,ST) at [facility]. He was discharged from rehab on 11/23/20. Pt takes care of and lives with his mother who has early dementia. Pt was accompanied by his his brother , Yoav, who provided background and history. Hearing Hearing Level Normal Vision Vision Status Impaired Comments wears glasses Previous Therapy Previous Speech-Language Therapy Yes: at [facility] Subjective Patient Report Initially, pt had difficulty expressing himself. His brother, Yoav was asked to come into the session for assistance. Assessment Oral Motor Examination Completed No Informal Assessment Receptive Language Normal No: apparent deficits Receptive Language Impairment(s) Following 1-step commands Expressive Language Normal Yes Expressive Language Impairment(s) Sentence closure/completion, Confrontation naming,Divergent naming,Expression of basic wants/needs,Expression of complex thoughts/ideas,Written expression Pragmatic Language Normal Appeared to have a flat affect Pragmatic Language Impairment(s) Flat affect Speech Normal No Speech Impairment(s) Imprecise articulation,Slow speech rate,Decreased volume/ intensity,Prosody/Intonation Cognitive Impairment(s) Attention,Short-term memory, Thought organization Formal Assessment Standardized Test/Screener Type [facility] Mental Status (UMS) Administration Complete Results The majority of the initial session was spent gathering PMH and current rehab status from the pt and his brother. The SLUMS was given to the pt as a screening of his cognition. Pt scored 12/30, which indicates a moderate- severe cognitive decline. Pt was oriented to date and place . Mental math was challenging as was divergent naming and clock drawing. He could remember 2 of 5 words with delayed recall. He was able to answer 1 of 4 questions pertaining to a story read aloud to him. Because of the pt's aphasia, the results of the SLUMS may have been influenced by his word-finding difficulty. During the SLUMS the following informal observations noted: perseveration, paraphasias, word-finding difficulty, short term and working memory deficits. Findings/Results Language Function Moderately-severely impaired Cognitive Function Moderately-severely impaired Findings The results of the SLUMS indicates a need to further assess pt's cognition. Additonally, a full assessment of pt's aphasia/communication skills will be conducted. Cognitive Communication Deficits Self-awareness of Cognitive- Situational awareness ( Communication Deficits recognition of problem in context;in real time) Plan of Care Speech-Language Treatment Yes Frequency 1x/week Patient/Caregiver Education Described results of evaluation,Patient requires further education/training, Family/caregivers require further education/training Short Term Goals Complete cognitive and aphasia evaluations BUSINESS PROCESS ANALYST Treatment Note Start: 12/10/20 11:48 Freq: Status: Active Protocol: Document 04/05/21 12:49 LNK (Rec: 04/08/21 13:38 LNK [email or web address]) Speech Pathology Treatment Note Session Time Visit Start Time 14:30 Visit Stop Time 15:15 Total Visit Minutes 45 Visit Information Visit Number 4 Plan of Care Dates 04/08/21- 11/07/21 Insurance Information new auth for 6 visits 2021 Setting Treatment Setting Outpatient Care Visit Type Note Type Re-Evaluation Next Note Type Next Note Type Treatment Note General Information General Information Pt is a 50 year old male who sufferred an 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 He was admitted to [facility] in [place], [place]. He also completed inpt rehab (OT, PT,ST) at [facility]. He was discharged from rehab on 11/23/20. Pt demonstrated significant expressive aphasia and word finding difficulty. His speech was halting at a single word level produced very slowly. Pt takes care of and lives with his mother who has early dementia. Subjective Identification Type Name,Date of Identification Reconciled With Medical Record Chief Complaint(s) Speech,Language Patient Knowledge/Awareness of BUSINESS PROCESS ANALYST Role Excellent in Treatment Objective Short Term Goals *NEW GOALS* 1) Complete a 15 minute auditory/visual sustained attention task with 75% accuracy and <10 cues. 2) Demonstrate focused/ selective attention by attending/monitoring salient task details for 10 minutes with minimal assistance in a quiet individual group distracting environment 3) Pt will develop and complete functional ADL skills using Goal, Plan, Do organizational airport planner with minimal assistance. 4) Pt will be able to use cognitive strategies to assist with memory such as a memory book, use of calendar/smart phone/ notations, etc. in order to improve memory skills and complete ADLs at 75%. Pt will be able to use cognitive strategies to assist with memory such as memory book, use of calendar/smart phone/ notations, etc. in order to improve memory skills and complete ADLs at 75%. GOALS MET Pt will identify situations for which information will be written. GOAL MET Scripts will be developed as an external strategy for expressing needs when there is an emergency GOAL N/A Pt will use word-finding strategies from 70 % to 85-90% of the time 4) Pt will increase rate of speech through improvement of word finding ability. GOAL MET Assessment Patient Response to Treatment Excellent Rehab Potential Excellent Impairments Identified Aphasia,Cognitive-Linguistic Skills,Expressive Language, Memory - Short Term Progress Towards Goals Excellent Progress,Good Progress Assessment of Overall Progress Improving Assessment of Improvement Pt has made excellent progress in his therapy. He is able to participate in conversations with less than 10-15% word-finding difficulty . He reports that he has been doing homework consistently. He has returned to driving, having met the DOL standards. As pt has demonstrated excellent progress in his language skills, it has become clear that he is also demonstrating cognitive skills decline secondary to his CVA. He is very eager to continue his therapy program. New goals have been developed and are listed in short term goals section, above. Recommend continuation of [facility] authorization for therapy. Am requesting 12 additional sessions Reviewed with Patient Goals,Progress Being Made,Home Exercise Program Plan Amount of Therapy Recommended 6 Months Frequency of Treatment Once a Week Comment every other week Length of Session 60 Minutes Therapeutic Contents Client Education,Cognitive- Linguistic Training,Expressive Language Training,Home Exercise Program Provided Patient/Caregiver Instruction Home Exercise Program,Plan of Care,Questions/Concerns Therapy Recommendations Continue with Current Program
--- NOTE | 2021-05-03 14:23 | ST.OPTN ---
Visit Care Team Role Provider Type Catalina Greenberg PA-C Family Provider Non-Staff Primary Care Provider Address: [address], [address] José Quinn MD Attending Provider Non-Staff Referring Provider Address: [address] [place] [address], [id number] PLATINUMSMITH Treatment Note PLATINUMSMITH Treatment Note Start: 12/10/20 11:48 Freq: Status: Active Protocol: Document 05/03/21 13:27 LNK (Rec: 05/07/21 13:45 LNK [id number]) Speech Pathology Treatment Note Session Time Visit Start Time 14:30 Visit Stop Time 15:15 Total Visit Minutes 60 Visit Information Visit Number 5 Plan of Care Dates 04/08/21- 11/07/21 Insurance Information new auth for 6 visits 2021 Setting Treatment Setting Outpatient Care Visit Type Note Type Re-Evaluation Next Note Type Next Note Type Treatment Note General Information Patient History Pt is a 50 year old male who sufferred an 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 He was admitted to [facility] in [place], [place]. He also completed inpt rehab (OT, PT,ST) at [facility]. He was discharged from rehab on 11/23/20. Pt demonstrated significant expressive aphasia and word finding difficulty. His speech was halting at a single word level produced very slowly. Pt takes care of and lives with his mother who has early dementia. [ E Subjective Identification Type Name,Date of Identification Reconciled With Medical Record Chief Complaint(s) Speech,Language Objective Short Term Goals *NEW GOALS* 1) Complete a 15 minute auditory/visual sustained attention task with 75% accuracy and <10 cues. 2) Demonstrate focused/ selective attention by attending/monitoring salient task details for 10 minutes with minimal assistance in a quiet individual group distracting environment 3) Pt will develop and complete functional ADL skills using Goal, Plan, Do organizational operations planner with minimal assistance. 4) Pt will be able to use cognitive strategies to assist with memory such as a memory book, use of calendar/smart phone/ notations, etc. in order to improve memory skills and complete ADLs at 75%. Pt will be able to use cognitive strategies to assist with memory such as memory book, use of calendar/smart phone/ notations, etc. in order to improve memory skills and complete ADLs at 75%. Pt will identify situations for which information will be written. GOAL MET Scripts will be developed as an external strategy for expressing needs when there is an emergency GOAL N/A Pt will use word-finding strategies from 70 % to 85-90% of the time 4) Caven will increase rate of speech through improvement of word finding ability. GOAL MET Treatment Activities Pt remarked that he has been under a lot of stress lately. He is going through a divorce, his children are not talking to him and he takes care of his mother who has dementia. He feels lonely, not socializing much. He stated I should just end it all '. I asked if he was talking about suicide and he said every day . Gave him information on the Mobile Outreach Team and encouraged them to call and ask for help. I asked if he had anyone to talk to. Im just at home. I asked him if I could call his DrRiver or his brother, and he said No, I'm good right now. I assured him that he has mde remarkable progress in all therapies over the past months. 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 He told me he was going to call his mental health counselor today . Assessment Patient Response to Treatment Excellent Rehab Potential Excellent Impairments Identified Aphasia,Cognitive-Linguistic Skills,Expressive Language, Memory - Short Term Progress Towards Goals Excellent Progress,Good Progress Assessment of Overall Progress Improving Reviewed with Patient Goals,Progress Being Made,Home Exercise Program Plan Amount of Therapy Recommended 6 Months Frequency of Treatment Once a Week Comment every other week Length of Session 60 Minutes Therapeutic Contents Client Education,Cognitive- Linguistic Training,Expressive Language Training,Home Exercise Program Provided Patient/Caregiver Instruction Home Exercise Program,Plan of Care,Questions/Concerns Therapy Recommendations Continue with Current Program
--- NOTE | 2021-05-07 13:46 | ST.OPTN ---
Visit Care Team Role Provider Type Catalina Greenberg PA-C Family Provider Non-Staff Primary Care Provider Address: [address], [address] José Quinn MD Attending Provider Non-Staff Referring Provider Address: [address] [place] [address], [id number] GENETIC COUNSELOR Treatment Note GENETIC COUNSELOR Treatment Note Start: 12/10/20 11:48 Freq: Status: Active Protocol: Document 05/07/21 13:27 LNK (Rec: 05/07/21 13:45 LNK [id number]) Speech Pathology Treatment Note Session Time Visit Start Time 14:30 Visit Stop Time 15:15 Total Visit Minutes 60 Visit Information Visit Number 5 Plan of Care Dates 04/08/21- 11/07/21 Insurance Information new auth for 6 visits 2021 Setting Treatment Setting Outpatient Care Visit Type Note Type Re-Evaluation Next Note Type Next Note Type Treatment Note General Information Patient History Pt is a 50 year old male who sufferred an 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 He was admitted to [facility] in [place], [place]. He also completed inpt rehab (OT, PT,ST) at [facility]. He was discharged from rehab on 11/23/20. Pt demonstrated significant expressive aphasia and word finding difficulty. His speech was halting at a single word level produced very slowly. Pt takes care of and lives with his mother who has early dementia. [ E Subjective Identification Type Name,Date of Identification Reconciled With Medical Record Chief Complaint(s) Speech,Language Patient Knowledge/Awareness of GENETIC COUNSELOR Role Excellent in Treatment Objective Short Term Goals *NEW GOALS* 1) Complete a 15 minute auditory/visual sustained attention task with 75% accuracy and <10 cues. 2) Demonstrate focused/ selective attention by attending/monitoring salient task details for 10 minutes with minimal assistance in a quiet individual group distracting environment 3) Pt will develop and complete functional ADL skills using Goal, Plan, Do organizational office workforce planner with minimal assistance. 4) Pt will be able to use cognitive strategies to assist with memory such as a memory book, use of calendar/smart phone/ notations, etc. in order to improve memory skills and complete ADLs at 75%. Pt will be able to use cognitive strategies to assist with memory such as memory book, use of calendar/smart phone/ notations, etc. in order to improve memory skills and complete ADLs at 75%. Pt will identify situations for which information will be written. GOAL MET Scripts will be developed as an external strategy for expressing needs when there is an emergency GOAL N/A Pt will use word-finding strategies from 70 % to 85-90% of the time 4) Izzyn will increase rate of speech through improvement of word finding ability. GOAL MET Treatment Activities Pt remarked that he has been under a lot of stress lately. He is going through a divorce, his children are not talking to him and he takes care of his mother who has dementia. He feels lonely, not socializing much. He stated I should just end it all '. I asked if he was talking about suicide and he said every day . Gave him information on the Mobile Outreach Team and encouraged them to call and ask for help. I asked if he had anyone to talk to. Im just at home. I asked him if I could call his DrRiver or his brother, and he said No, I'm good right now. I assured him that he has made remarkable progress in all therapies over the past months. 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 He told me he was going to call his mental health counselor today . Assessment Patient Response to Treatment Excellent Rehab Potential Excellent Impairments Identified Aphasia,Cognitive-Linguistic Skills,Expressive Language, Memory - Short Term Progress Towards Goals Excellent Progress,Good Progress Assessment of Overall Progress Improving Reviewed with Patient Goals,Progress Being Made,Home Exercise Program Plan Amount of Therapy Recommended 6 Months Frequency of Treatment Once a Week Comment every other week Length of Session 60 Minutes Therapeutic Contents Client Education,Cognitive- Linguistic Training,Expressive Language Training,Home Exercise Program Provided Patient/Caregiver Instruction Home Exercise Program,Plan of Care,Questions/Concerns Therapy Recommendations Continue with Current Program
--- NOTE | 2021-05-13 14:18 | ST.OPTN ---
Visit Care Team Role Provider Type Catalina Greenberg PA-C Family Provider Non-Staff Primary Care Provider Address: [address], [address] José Quinn MD Attending Provider Non-Staff Referring Provider Address: [address] [place] [address], [id number] RN UNIT MANAGER Treatment Note RN UNIT MANAGER Treatment Note Start: 12/10/20 11:48 Freq: Status: Active Protocol: Document 05/03/21 13:27 LNK (Rec: 05/07/21 13:45 LNK [id number]) Speech Pathology Treatment Note Session Time Visit Start Time 14:30 Visit Stop Time 15:15 Total Visit Minutes 60 Visit Information Visit Number 5 Plan of Care Dates 04/08/21- 11/07/21 Insurance Information new auth for 6 visits 2021 Setting Treatment Setting Outpatient Care Visit Type Note Type Re-Evaluation Next Note Type Next Note Type Treatment Note General Information Patient History Pt is a 50 year old male who suffered an 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 He was admitted to [facility] in [place], [place]. He also completed inpt rehab (OT, PT,ST) at [facility]. He was discharged from rehab on 11/23/20. Pt demonstrated significant expressive aphasia and word finding difficulty. His speech was halting at a single word level produced very slowly. Pt takes care of and lives with his mother who has early dementia. [ E Subjective Identification Type Name,Date of Identification Reconciled With Medical Record Chief Complaint(s) Speech,Language Patient Knowledge/Awareness of RN UNIT MANAGER Role Excellent in Treatment Objective Short Term Goals *NEW GOALS* 1) Complete a 15 minute auditory/visual sustained attention task with 75% accuracy and <10 cues. 2) Demonstrate focused/ selective attention by attending/monitoring salient task details for 10 minutes with minimal assistance in a quiet individual group distracting environment 3) Pt will develop and complete functional ADL skills using Goal, Plan, Do organizational principal planner with minimal assistance. 4) Pt will be able to use cognitive strategies to assist with memory such as a memory book, use of calendar/smart phone/ notations, etc. in order to improve memory skills and complete ADLs at 75%. Pt will be able to use cognitive strategies to assist with memory such as memory book, use of calendar/smart phone/ notations, etc. in order to improve memory skills and complete ADLs at 75%. Pt will identify situations for which information will be written. GOAL MET Scripts will be developed as an external strategy for expressing needs when there is an emergency GOAL N/A Pt will use word-finding strategies from 70 % to 85-90% of the time 4) Karissa will increase rate of speech through improvement of word finding abilty. GOAL MET Treatment Activities Pt remarked that he has been under a lot of stress lately. He is going through a divorce, his children are not talking to him and he takes care of his mother who has dementia. He feels lonely, not socializing much. He stated I should just end it all '. I asked if he was talking about suicide and he said every day . Gave him information on the Mobile Outreach Team and encouraged them to call and ask for help. I asked if he had anyone to talk to. Im just at home. I asked him if I could call his DrRiver or his brother, and he said No, I'm good right now. I assured him that he has made remarkable progress in all therapies over the past months. 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 He told me he was going to call his mental health counselor today . Assessment Patient Response to Treatment Excellent Rehab Potential Excellent Impairments Identified Aphasia,Cognitive-Linguistic Skills,Expressive Language, Memory - Short Term Progress Towards Goals Excellent Progress,Good Progress Assessment of Overall Progress Improving Reviewed with Patient Goals,Progress Being Made,Home Exercise Program Plan Amount of Therapy Recommended 6 Months Frequency of Treatment Once a Week Comment every other week Length of Session 60 Minutes Therapeutic Contents Client Education,Cognitive- Linguistic Training,Expressive Language Training,Home Exercise Program Provided Patient/Caregiver Instruction Home Exercise Program,Plan of Care,Questions/Concerns Therapy Recommendations Continue with Current Program
--- NOTE | 2021-05-17 15:52 | ST.OPTN ---
Visit Care Team Role Provider Type Catalina Greenberg PA-C Family Provider Non-Staff Primary Care Provider Address: [address], [address] José Quinn MD Attending Provider Non-Staff Referring Provider Address: [address] [place] [address], [id number] BENCH MOLDER Treatment Note BENCH MOLDER Treatment Note Start: 12/10/20 11:48 Freq: Status: Active Protocol: Document 05/17/21 14:34 LNK (Rec: 05/17/21 15:52 LNK [id number]) Speech Pathology Treatment Note Session Time Total Visit Minutes 60 Visit Information Visit Number 6 Plan of Care Dates 04/08/21- 11/07/21 Insurance Information new auth for 6 visits 2021 Setting Treatment Setting Outpatient Care Visit Type Note Type Re-Evaluation Next Note Type Next Note Type Treatment Note General Information Patient History Pt is a 50 year old male who sufferred an 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 He was admitted to [facility] in [place], [place]. He also completed inpt rehab (OT, PT,ST) at [facility]. He was discharged from rehab on 11/23/20. Pt demonstrated significant expressive aphasia and word finding difficulty. His speech was halting at a single word level produced very slowly. Pt takes care of and lives with his mother who has early dementia. [ E Subjective Identification Type Name,Date of Identification Reconciled With Medical Record Chief Complaint(s) Speech,Language Objective Short Term Goals *NEW GOALS* 1) Complete a 15 minute auditory/visual sustained attention task with 75% accuracy and <10 cues. 2) Demonstrate focused/ selective attention by attending/monitoring salient task details for 10 minutes with minimal assistance in a quiet individual group distracting environment 3) Pt will develop and complete functional ADL skills using Goal, Plan, Do organizational associate media planner with minimal assistance. 4) Pt will be able to use cognitive strategies to assist with memory such as a memory book, use of calendar/smart phone/ notations, etc. in order to improve memory skills and complete ADLs at 75%. Pt will be able to use cognitive strategies to assist with memory such as memory book, use of calendar/smart phone/ notations, etc. in order to improve memory skills and complete ADLs at 75%. Pt will identify situations for which information will be written. GOAL MET Scripts will be developed as an external strategy for expressing needs when there is an emergency GOAL N/A Pt will use word-finding strategies from 70 % to 85-90% of the time 4) Karissa will increase rate of speech through improvement of word finding ability. GOAL MET Treatment Activities Pt reported that he has reached out to his counselor and physician nd is happy he has people on his side. Discussed applying for Disability. Sathya indicated he would like to do that. Wrapped up his progress to date with therapy. He said his head is still busy and chaotic. Introduced [facility] virtual aphasia support groups . Recommended that he take advantage of these groups as a way to meet people going through similar circumstances. This is Karissa's last authorized appointment for the year, unless more get authorized. Assessment Patient Response to Treatment Excellent Rehab Potential Excellent Impairments Identified Aphasia,Cognitive-Linguistic Skills,Expressive Language, Memory - Short Term Progress Towards Goals Excellent Progress,Good Progress Assessment of Overall Progress Improving Assessment of Improvement Pt has made excellent progress in his therapy. He is able to participate in conversations with less than 10-15% word-finding difficulty . He reports that he has been doing homework consistently. He has returned to driving, having met the DOL standards. As pt has demonstrated excellent progress in his language skills, it has become clear that he is also demonstrating cognitive skills decline secondary to his CVA. He is very eager to continue his therapy program. New goals have been developed and are listed in short term goals section, above. Recommend continuation of [facility] authorization for therapy. Am requesting 12 additional sessions Reviewed with Patient Goals,Progress Being Made,Home Exercise Program Plan Amount of Therapy Recommended 6 Months Frequency of Treatment Once a Week Comment every other week Length of Session 60 Minutes Therapeutic Contents Client Education,Cognitive- Linguistic Training,Expressive Language Training,Home Exercise Program Provided Patient/Caregiver Instruction Home Exercise Program,Plan of Care,Questions/Concerns Therapy Recommendations Continue with Current Program
--- NOTE | 2021-08-09 14:27 | ST.OPTN ---
Visit Care Team Role Provider Type Catalina Greenberg PA-C Family Provider Non-Staff Primary Care Provider Address: [address], [address] José Quinn MD Attending Provider Non-Staff Referring Provider Address: [address] [place] [address], [id number] DIRECTOR OF MARKETING Treatment Note DIRECTOR OF MARKETING Treatment Note Start: 12/10/20 11:48 Freq: Status: Active Protocol: Document 08/09/21 14:19 MG (Rec: 08/09/21 14:26 MG [id number]) Speech Pathology Treatment Note Session Time Visit Start Time 14:30 Visit Stop Time 15:15 Total Visit Minutes 45 Visit Information Visit Number 7 Plan of Care Dates 04/08/21- 11/07/21 Insurance Information possibly approved for four more sessions? 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 He was admitted to [facility] in [place], [place]. He also completed inpt rehab (OT, PT,ST) at [facility]. He was discharged from rehab on 11/23/20. Pt demonstrated significant expressive aphasia and word finding difficulty. His speech was halting at a single word level produced very slowly. Pt takes care of and lives with his mother who has early dementia. Subjective Identification Type Name,Date of Identification Reconciled With Medical Record Observations/Patient Presentation DIRECTOR OF MARKETING Ting selwyn Hancock on this day. He was confused at first with the change, but did agree to treatment. Towards the end of the session he appeared a little more fatigued. Chief Complaint(s) Speech,Language Patient Knowledge/Awareness of DIRECTOR OF MARKETING Role Excellent in Treatment Parent/Caretake Knowledge/Awareness of Excellent DIRECTOR OF MARKETING Role in Treatment Objective Short Term Goals *NEW GOALS* 1) Complete a 15 minute auditory/visual sustained attention task with 75% accuracy and <10 cues. 2) Demonstrate focused/ selective attention by attending/monitoring salient task details for 10 minutes with minimal assistance in a quiet individual group distracting environment 3) Pt will develop and complete functional ADL skills using Goal, Plan, Do organizational product planner with minimal assistance. 4) Pt will be able to use cognitive strategies to assist with memory such as a memory book, use of calendar/smart phone/ notations, etc. in order to improve memory skills and complete ADLs at 75%. Pt will be able to use cognitive strategies to assist with memory such as memory book, use of calendar/smart phone/ notations, etc. in order to improve memory skills and complete ADLs at 75%. Pt will identify situations for which information will be written. GOAL MET Scripts will be developed as an external strategy for expressing needs when there is an emergency GOAL N/A Pt will use word-finding strategies from 70 % to 85-90% of the time 4) Karissa will increase rate of speech through improvement of word finding ability. GOAL MET Treatment Activities Pt reported in the almost three months off he has made slow but substantial progress . Word finding is still a difficulty for him - he noted that when he tries to find a word he uses a dictionary in his brain to find the word, which can be tiring but works for him. When DIRECTOR OF MARKETING prompted him re: other strategies that were shared, he reported that those did not seem to work for him. He is using his phone more and accessing apps like [employer] and [employer] to help his memory and attention. Reminded pt about support groups, and he reported he hadn't accessed yet. DIRECTOR OF MARKETING shared information with him again and he reported he would try it out and let me know as the computer is still hard. Also discussed difficulty with remembered people and names; suggested adding pictures in contact list and he thought that would be helpful to do. Karissa noted broad questions are harder to answer, but pre-stroke he enjoyed those and doesn't want people to stop asking him those questions. Sathya also shared he does not like the GPDR because he either likes to set a time to a task or create a goal; not do both at the same time. Assessment Patient Response to Treatment Excellent Rehab Potential Excellent Progress Towards Goals Excellent Progress,Good Progress Assessment of Overall Progress Improving Assessment of Improvement Pt has made excellent progress in his therapy. He is able to participate in conversations with less than 10-15% word-finding difficulty . He reports that he has been doing homework consistently. He has returned to driving, having met the DOL standards. As pt has demonstrated excellent progress in his language skills, it has become clear that he is also demonstrating cognitive skills decline secondary to his CVA. He is very eager to continue his therapy program. New goals have been developed and are listed in short term goals section, above. Recommend continuation of [facility] authorization for therapy. Am requesting 12 additional sessions Reviewed with Patient Goals,Progress Being Made,Home Exercise Program Plan Amount of Therapy Recommended 6 Months Frequency of Treatment Once a Week Comment every other week Length of Session 60 Minutes Therapeutic Contents Client Education,Cognitive- Linguistic Training,Expressive Language Training,Home Exercise Program Provided Patient/Caregiver Instruction Home Exercise Program,Plan of Care,Questions/Concerns Therapy Recommendations Continue with Current Program
--- NOTE | 2021-09-06 14:51 | ST.OPTN ---
Visit Care Team Role Provider Type Catalina Greenberg PA-C Family Provider Non-Staff Primary Care Provider Address: [address], [address] José Quinn MD Attending Provider Non-Staff Referring Provider Address: [address] [place] [address], [id number] PLATING OPERATOR Treatment Note PLATING OPERATOR Treatment Note Start: 12/10/20 11:48 Freq: Status: Active Protocol: Document 09/06/21 14:36 LNK (Rec: 09/06/21 14:51 LNK [id number]) Speech Pathology Treatment Note Session Time Total Visit Minutes 45 Visit Information Plan of Care Dates 04/08/21- 11/07/21 Insurance Information possibly approved for four more sessions? Setting Treatment Setting Outpatient Care Visit Type Note Type Treatment Note Next Note Type Next Note Type Treatment Note General Information Patient History Pt is a 50 year old male who sufferred an 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 He was admitted to [facility] in [place], [place]. He also completed inpt rehab (OT, PT,ST) at [facility]. He was discharged from rehab on 11/23/20. Pt demonstrated significant expressive aphasia and word finding difficulty. His speech was halting at a single word level produced very slowly. Pt takes care of and lives with his mother who has early dementia. Subjective Identification Type Name,Date of Identification Reconciled With Medical Record Chief Complaint(s) Speech,Language Patient Knowledge/Awareness of PLATING OPERATOR Role Excellent in Treatment Parent/Caretake Knowledge/Awareness of Excellent PLATING OPERATOR Role in Treatment Objective Short Term Goals *NEW GOALS* 1) Complete a 15 minute auditory/visual sustained attention task with 75% accuracy and <10 cues. MET 2) Demonstrate focused/ selective attention by attending/monitoring salient task details for 10 minutes with minimal assistance in a quiet individual group distracting environmentMET 3) Pt will develop and complete functional ADL skills using Goal, Plan, Do organizational marketing planner with minimal assistance.D/C GOAL PER PT REQUEST 4) Pt will be able to use cognitive strategies to assist with memory such as a memory book, use of calendar/smart phone/ notations, etc. in order to improve memory skills and complete ADLs at 75%. Pt will be able to use cognitive strategies to assist with memory such as memory book, use of calendar/smart phone/ notations, etc. in order to improve memory skills and complete ADLs at 75%. MET Pt will identify situations for which information will be written. GOAL MET Scripts will be developed as an external strategy for expressing needs when there is an emergency GOAL N/A Pt will use word-finding strategies from 70 % to 85-90% of the time 4) Karissa will increase rate of speech through improvement of word finding abilty. GOAL MET Treatment Activities Targeted motor planning with tongue twisters. Karissa worked through ~10 TT with repetitions as needed to complete successfully. Assessment Patient Response to Treatment Excellent Rehab Potential Excellent Progress Towards Goals Excellent Progress,Good Progress Assessment of Overall Progress Improving Assessment of Improvement Pt has made excellent progress in his therapy. Pt reported continuing, but slow improvement. he continues to have WFD and reduced motor planning. The combination of the two make pt frustrated and in his frustration, his anxiety increases and he is unable to continue. Pt is very responsive to counseling re; communication and therapeutic strategies suggested. Reviewed with Patient Goals,Progress Being Made,Home Exercise Program Plan Amount of Therapy Recommended 6 Months Frequency of Treatment Once a Week Comment every other week Length of Session 60 Minutes Therapeutic Contents Client Education,Cognitive- Linguistic Training,Expressive Language Training,Home Exercise Program Provided Patient/Caregiver Instruction Home Exercise Program,Plan of Care,Questions/Concerns Therapy Recommendations Continue with Current Program
--- NOTE | 2021-10-04 15:28 | ST.OPDS ---
Visit Care Team Role Provider Type Catalina Greenberg PA-C Family Provider Non-Staff Primary Care Provider Address: [address], [address] José Quinn MD Attending Provider Non-Staff Referring Provider Address: [address] [place] [address], [id number] MECHANICAL MAINTENANCE TECHNICIAN Treatment Note MECHANICAL MAINTENANCE TECHNICIAN Treatment Note Start: 12/10/20 11:48 Freq: Status: Active Protocol: Document 10/04/21 15:20 LNK (Rec: 10/04/21 15:27 LNK [id number]) Speech Pathology Treatment Note Session Time Visit Start Time 13:30 Visit Stop Time 14:15 Total Visit Minutes 45 Visit Information Plan of Care Dates 04/08/21- 11/07/21 Insurance Information possibly approved for four more sessions? Setting Treatment Setting Outpatient Care Visit Type Note Type Treatment Note Next Note Type Next Note Type Treatment Note General Information Patient History Pt is a 50 year old male who sufferred an 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 He was admitted to [facility] in [place], [place]. He also completed inpt rehab (OT, PT,ST) at [facility]. He was discharged from rehab on 11/23/20. Pt demonstrated significant expressive aphasia and word finding difficulty. His speech was halting at a single word level produced very slowly. Pt takes care of and lives with his mother who has early dementia. Subjective Identification Type Name,Date of Identification Reconciled With Medical Record Chief Complaint(s) Speech,Language Patient Knowledge/Awareness of MECHANICAL MAINTENANCE TECHNICIAN Role Excellent in Treatment Parent/Caretake Knowledge/Awareness of Excellent MECHANICAL MAINTENANCE TECHNICIAN Role in Treatment Objective Short Term Goals *NEW GOALS* 1) Complete a 15 minute auditory/visual sustained attention task with 75% accuracy and <10 cues. MET 2) Demonstrate focused/ selective attention by attending/monitoring salient task details for 10 minutes with minimal assistance in a quiet individual group distracting environmentMET 3) Pt will develop and complete functional ADL skills using Goal, Plan, Do organizational retail planner with minimal assistance.D/C GOAL PER PT REQUEST 4) Pt will be able to use cognitive strategies to assist with memory such as a memory book, use of calendar/smart phone/ notations, etc. in order to improve memory skills and complete ADLs at 75%. MET Pt will be able to use cognitive strategies to assist with memory such as memory book, use of calendar/smart phone/ notations, etc. in order to improve memory skills and complete ADLs at 75%. MET Pt will identify situations for which information will be written. GOAL MET Scripts will be developed as an external strategy for expressing needs when there is an emergency GOAL N/A Pt will use word-finding strategies from 70 % to 85-90% of the time 4) Karissa will increase rate of speech through improvement of word finding ability. GOAL MET Treatment Activities Reviewed Karissa's progress to date and short term goals. Karissa reported that he is getting better in all ways including his speech. he is still experiencing mild WFD, but is able to complete his thoughts without assistance 95+ % of the time. after discussion of his progress and meeting all goals, it was decided to d/c Karissa from at this time Assessment Patient Response to Treatment Excellent Rehab Potential Excellent Progress Towards Goals Excellent Progress,Goals Met, Appropriate for Discharge Assessment of Overall Progress Improving Assessment of Improvement Pt has made excellent progress in his therapy. Reviewed with Patient Progress Being Made,Home Exercise Program Plan Amount of Therapy Recommended No Further Therapy Frequency of Treatment No Further Therapy Therapeutic Contents Home Exercise Program Provided Patient/Caregiver Instruction Home Exercise Program Therapy Recommendations Continue with Current Program, Discharge from Speech Therapy
== END 2021-10-07 13:23 ==
LOC: SP 13:30
PROVIDERS: Family Provider Physician Assistant Medical; PCP Physician Assistant Medical; Referring Provider Physical Medicine & Rehabilitation; Visit Provider Physical Medicine & Rehabilitation
DX: I63.9 Cerebral infarction, unspecified (principal)
CPT/HCPCS: 92507; 92522; 97129; 97130

== ENCOUNTER 2021-11-07 13:30 | Outpatient (RCR) | payer OTHER, MEDICAID, SELFPAY ==
--- NOTE | 2021-01-23 15:30 | OT.OP.EVAL ---
Visit Care Team Role Provider Type Catalina Greenberg PA-C Attending Provider Non-Staff Family Provider Primary Care Provider Referring Provider Specialty: Medical Address: [address] [place] [address], [place], [address] Email: Occupational Therapy Initial Evaluation OT Outpatient Adult Evaluation Start: 01/23/21 15:50 Freq: Status: Active Protocol: Document 01/23/21 15:50 AMS (Rec: 01/23/21 15:54 AMS [id number]) General Information Visit Start Time 12:30 Visit Stop Time 13:15 Total Visit Minutes 45 Plan of Care Dates 01/23/21 - 03/27/21 Insurance Information EVAL CHARGE ONLY; then 24 OT units (8 visits @ 3 units per visit) max markus. Treatment Setting Outpatient Care Note Type Initial Evaluation Goals Short Term Goals 1. Karissa will present with improved fine motor coordination of the right hand . This will be evidenced by Karissa completing task in 25.0 seconds or less with the right hand. Machine Brusher Goals 1. Karissa will be modified independent with home exercise program utilizing provided written and visual instructions from therapist. 2. Karissa will present with improved functional abilities of the affected right hand; this will be evidenced by Karissa obtaining a score of 25. 0 or less on the QuickDASH UE Outcome measure. 3. Karissa will present with improved functional abilities of the affected right hand; this will be evidenced by Karissa obtaining a score of 50. 0 or less on the QuickDASH UE Outcome Sports/Performing Arts Module. Assessment/Plan Treatment Assessment Patient is a 50 year-old, right hand dominant male referred to outpatient OT secondary to 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 Karissa went to inpatient rehab and discharged home in early November. Karissa has received outpatient PT and since has been d/c; he has also received outpatient [facility] OF REHABILITATION SERVICES. He is likely to resume outpatient COORDINATOR OF REHABILITATION SERVICES in the new year and is limited by insurance. PLOF: Independent . 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 Karissa would like to be able to return to playing instruments . Evaluation Findings: Able to oppose thumb to each digit pad bilaterally with EO and EC; he had mild difficulty executing thumb slides with the right hand to each digit pad. Karissa reports impaired sensation of the hand; however , is able to sense 'firm' touch. This is reportedly impacting his ability to 'feel ' the strings/coordinate the bow of the violin. Karissa did have mild difficulty with in- hand manipulation skills of the right hand; he struggled with separation of the 2 sides of the hand and efficient rotation and translation of smaller objects. Karissa completed the 9-Hole Peg test in 30.4 seconds w/ the right hand and in 25.5 seconds with the left hand. He obtained a QuickDASH UE Outcome Measure Score of 43.2 and QuickDASH UE Outcome Sports/Performing Arts Module Score = 87.5. Karissa denied any pain of the right upper extremity. He averaged 42.0# of force w/ right septic tank setter and 87.0# of force w/ left septic tank setter w/ dynamometer II strength testing. He averaged 22.0# of force w/ left lateral giles pinch and 18.0# of force w/ right lateral giles pinch; he averaged 10.0# of force w/ left tip pinch and 7. 0# of force w/ right tip pinch ; and finally, he averaged 17. 0# of force w/ left 3-jaw pinch and 13.5# of force w/ right 3-jaw pinch. Averages were obtained with pinchometer . Karissa would likely benefit from outpatient OT to address impaired fine motor/in-hand manipulation, impaired bimanual coordination, impaired sensation, and decreased strength of the distal right upper extremity; given Karissa's goals, therapist did not assess proximal strength of the upper extremity. Recommend evaluating at date in future as able given insurance limitations. Comment 9 weeks Comment 1 x a week; 1 x every other week Therapeutic Contents Active Range of Motion, Adaptive Equipment Education, Client Education,Cognitive Skills Development,Functional Activities,Home Exercise Program,Joint Protection, Manual Therapy,Education, Neurodevelopment Treatment, Neuromuscular Re-Education, Self-Care,Stretching/ Flexibility Activities, Therapeutic Activities, Therapeutic Exercises,Sensory Re-education
--- NOTE | 2021-01-31 14:44 | OT.OP.TRT ---
Visit Care Team Role Provider Type Catalina Greenberg PA-C Attending Provider Non-Staff Family Provider Primary Care Provider Referring Provider Specialty: Medical Address: [address], [place], [address] Email: Occupational Therapy Treatment Note OT Outpatient Treatment Note - Adult Start: 01/23/21 15:50 Freq: Status: Active Protocol: Document 01/31/21 14:31 AMS (Rec: 01/31/21 14:43 AMS [id number]) OT Outpatient Adult Treatment Note Session Time Visit Start Time 14:30 Visit Stop Time 15:15 Total Visit Minutes 45 Visit Information Visit Number 3/24 units; 02/23 visits Plan of Care Dates 01/23/21 - 03/27/21 Insurance Information EVAL CHARGE ONLY; then 24 OT units (8 visits @ 3 units per visit) max markus. 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 Karissa went to inpatient rehab and discharged home in early November. Karissa has received outpatient PT and since has been d/c; he has also received outpatient PENSIONS RETIREMENT PLAN SPECIALIST. He is likely to resume outpatient PENSIONS RETIREMENT PLAN SPECIALIST in the new year and is limited by insurance. PLOF: Independent . - Subjective Identification Type Name Identification Reconciled With Medical Record Observations I have been practicing playing the guitar every day. I have a hard time playing the strings a 2nd or 3rd time through. I have not yet tried to play the violin per Karissa. It is already probably a 1000x better than a week ago in re: guitar playing. I am seeing my doctor next week. Patient Expectation/Goals Karissa would like to be able to return to playing instruments . Patient/Caregiver Compliance with Home Excellent Exercise Program - Objective Objective Measurements Please refer to below in re: progress towards meeting established goals. Short Term Goals 1. Karissa will present with improved fine motor coordination of the right hand . This will be evidenced by Karissa completing task in 25.0 seconds or less with the right hand. Senior Care Goals 1. Karissa will be modified independent with home exercise program utilizing provided written and visual instructions from therapist. 2. Karissa will present with improved functional abilities of the affected right hand; this will be evidenced by Karissa obtaining a score of 25. 0 or less on the QuickDASH UE Outcome measure. 3. Karissa will present with improved functional abilities of the affected right hand; this will be evidenced by Karissa obtaining a score of 50. 0 or less on the QuickDASH UE Outcome Sports/Performing Arts Module. 4. Karissa will present with improved ability to engage in meaningful activities with active incorporation of the affected hand; this will be evidenced by Karissa's verbal report of playing one of his musical instruments , 5+ days per week, for 30 minutes or more. - Treatment 1 Descriptor Motor planning. Kinesthetic/ Proprioceptive awareness. Rubberband. Finger walking. Rubberband extension w/ and w/ out visual feedback. In-hand manipulation w/ balls rotating CW/CCW around one another. - Assessment Assessment of Improvement (+) compliance with home exercise program; report of error(s) occurring when playing a set of chords the 2nd or 3rd time through w/ guitar. Improving in-hand manipulation and motor planning/kinesthetic awareness of digits of the right hand. Actively playing guitar on a daily basis! Will trial violin prior to next treatment session. 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 Overall, good progress. - Plan Therapy Recommendations Continue with Current Program, Advance per Rehabilitation Protocol
--- NOTE | 2021-02-06 15:30 | OT.OP.TRT ---
Visit Care Team Role Provider Type Catalina Greenberg PA-C Attending Provider Non-Staff Family Provider Primary Care Provider Referring Provider Specialty: Medical Address: [address], [place], [address] Email: Occupational Therapy Treatment Note OT Outpatient Treatment Note - Adult Start: 01/23/21 15:50 Freq: Status: Active Protocol: Document 02/06/21 15:30 AMS (Rec: 02/07/21 11:59 AMS [id number]) OT Outpatient Adult Treatment Note Session Time Visit Start Time 13:30 Visit Stop Time 14:15 Total Visit Minutes 45 Visit Information Visit Number 6/24 units; 2/ visits Plan of Care Dates 01/23/21 - 03/27/21 Insurance Information EVAL CHARGE ONLY; then 24 OT units (8 visits @ 3 units per visit) max markus. 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 Karissa went to inpatient rehab and discharged home in early November. Karissa has received outpatient PT and since has been d/c; he has also received outpatient AUTOMOTIVE DIAGNOSTIC TECHNICIAN. He is likely to resume outpatient AUTOMOTIVE DIAGNOSTIC TECHNICIAN in the new year and is limited by insurance. PLOF: Independent . - Subjective Identification Type Name Identification Reconciled With Medical Record Observations I have been practicing playing the guitar every day. I started working on a new pattern on the guitar. I also tried playing the violin per Karissa. Patient Expectation/Goals Karissa would like to be able to return to playing instruments . Patient/Caregiver Compliance with Home Excellent Exercise Program - Objective Objective Measurements Please refer to below in re: progress towards meeting established goals. Short Term Goals 1. Karissa will present with improved fine motor coordination of the right hand . This will be evidenced by Karissa completing task in 25.0 seconds or less with the right hand. Fpc Goals 1. Karissa will be modified independent with home exercise program utilizing provided written and visual instructions from therapist. 2. Karissa will present with improved functional abilities of the affected right hand; this will be evidenced by Karissa obtaining a score of 25. 0 or less on the QuickDASH UE Outcome measure. 3. Karissa will present with improved functional abilities of the affected right hand; this will be evidenced by Karissa obtaining a score of 50. 0 or less on the QuickDASH UE Outcome Sports/Performing Arts Module. 4. Karissa will present with improved ability to engage in meaningful activities with active incorporation of the affected hand; this will be evidenced by Karissa's verbal report of playing one of his musical instruments , 5+ days per week, for 30 minutes or more. - Treatment 1 Descriptor Motor planning. Kinesthetic/ Proprioceptive awareness. In-hand manipulation w/ balls rotating CW/CCW around one another. Oppositional skills w / get-a-sld teacher clothespins and small pegs. Tool use (tweezers w/ transferring of TB squares , beads). - Assessment Assessment of Improvement (+) compliance with home exercise program. Improving speed and efficiency with in- hand manipulation; improving speed and efficiency w/ translation and rotation of objects with inlucsion of the right thumb. Improving dissociation between digits. Daily practicing of guitar and some playing of violin. Report of concerns of memory difficulties; recommended written and recorded journaling of activities w/ follow-up w/ outpatient AUTOMOTIVE DIAGNOSTIC TECHNICIAN. 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 Overall, good progress. Recommended continued daily practice of playing musical instruments, considering use of chopsticks with eating, as well as journaling/recording of events for reflection purposes (help with identification of progress that has been made). - Plan Therapy Recommendations Continue with Current Program, Advance per Rehabilitation Protocol
--- NOTE | 2021-03-08 13:51 | OT.OP.TRT ---
Visit Care Team Role Provider Type Catalina Greenberg PA-C Attending Provider Non-Staff Family Provider Primary Care Provider Referring Provider Specialty: Medical Address: [address], [place], [address] Email: Occupational Therapy Treatment Note OT Outpatient Treatment Note - Adult Start: 01/23/21 15:50 Freq: Status: Active Protocol: Document 03/08/21 13:36 AMS (Rec: 03/08/21 13:51 AMS [id number]) OT Outpatient Adult Treatment Note Session Time Visit Start Time 13:30 Visit Stop Time 14:15 Total Visit Minutes 45 Visit Information Visit Number 3/ units; 02/23 visits Plan of Care Dates 01/23/21 - 03/27/21 Insurance Information EVAL CHARGE ONLY; then 24 OT units (8 visits @ 3 units per visit) asa aparicio. 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 Karissa went to inpatient rehab and discharged home in early November. Karissa has received outpatient PT and since has been d/c; he has also received outpatient SEISMOGRAPHER. He is likely to resume outpatient SEISMOGRAPHER in the new year and is limited by insurance. PLOF: Independent . - Subjective Identification Type Name Identification Reconciled With Medical Record Observations I have been playing the guitar almost every day. I am able to vary between 3 to 4 patterns. I have been playing the violin as well. I have a hard time texting; if I get frustrated I just use this left thumb. I have had a hard time using a knife with this hand. 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 Patient Expectation/Goals Karissa would like to be able to return to playing instruments . Patient/Caregiver Compliance with Home Excellent Exercise Program - Objective Objective Measurements Please refer to below in re: progress towards meeting established goals. 03/08/21 = Writing sample obtained and scanned into EMR. Short Term Goals 1. Karissa will present with improved fine motor coordination of the right hand . This will be evidenced by Karissa completing task in 25.0 seconds or less with the right hand. 2. Karissa will present with improved coordination of the right hand. This will be evidenced by Karissa's verbal report of using his right thumb to formulate texts (in conjunction with the left thumb) on a daily basis over a 7-day period of time requiring increased time. Bottle Carrier Goals 1. Karissa will be modified independent with home exercise program utilizing provided written and visual instructions from therapist. 2. Karissa will present with improved functional abilities of the affected right hand; this will be evidenced by Karissa obtaining a score of 25. 0 or less on the QuickDASH UE Outcome measure. 3. Karissa will present with improved functional abilities of the affected right hand; this will be evidenced by Karissa obtaining a score of 50. 0 or less on the QuickDASH UE Outcome Sports/Performing Arts Module. 4. Karissa will present with improved ability to engage in meaningful activities with active incorporation of the affected hand; this will be evidenced by Karissa's verbal report of playing one of his musical instruments , 5+ days per week, for 30 minutes or more. - Treatment 2 Descriptor Functional motor planning. Problem solving. 1 Descriptor Motor planning. Fine Motor planning. Bimanual coordination. Thumb motor planning - texting /use of amparo downloaded onto personal cell phone. Fine motor planning - writing sample. - Assessment Assessment of Improvement (+) compliance with home exercise program. Obtained handwriting sample; will be scanned into EMR. Karissa was able to form all letters without visual reference and handwriting was legible with good spacing; Karissa did demonstrate variability with formation of letters between repetitions. He also reported discomfort when completing the handwriting tasks. Karissa had some difficulty with imitation of rhythmic patterns. Based on verbal feedback, report of difficulties with use of knife with meal preparation. With use of personal cell phone, decreased thumb coordination with accessing keys and targets with amparo use. Thus, fine motor planning continues to need to be addressed/radial sided motor planning. Overall , good session with advancement of home program. Home Exercise Program Recommended use of amparo on personal cellphone with right thumb only and typing texts with use of both thumbs. Recommended practicing chopping/slicing/knife use with softer items (and/or items that require larger cuts ). Recommended practicing handwriting via lycric/poetry composition. - Plan Therapy Recommendations Continue with Current Program, Advance per Rehabilitation Protocol
--- NOTE | 2021-03-28 15:30 | OT.OPPN ---
Current Diagnoses Cerebral infarction, unspecified (03/28/21) Other lack of coordination (03/28/21) OT Progress Note OT Outpatient Standardized Assessments Start: 01/23/21 15:50 Freq: Status: Active Protocol: Document 03/28/21 15:30 AMS (Rec: 03/29/21 08:39 AMS [id number]) 9-Hole Peg Hand Test Hand Left Date of Test 01/23/21 Therapist JANET Lebron/Kalyn Comments Scoring Time = 25.5 seconds Norms for 50-54 year-old males = 20.7 +/- 2.3 seconds Right Date of Test 03/28/21 Therapist JANET Lebron/Kalyn Comments Scoring Time = 27.8 seconds 01/23/21 = Scoring Time = 30.4 seconds Norms for 50-54 year-old males = 19.2 +/- 1.8 seconds OT Outpatient Treatment Note - Adult Start: 01/23/21 15:50 Freq: Status: Active Protocol: Document 03/28/21 15:30 AMS (Rec: 03/29/21 08:39 AMS [id number]) OT Outpatient Adult Treatment Note Session Time Visit Start Time 13:30 Visit Stop Time 14:15 Visit Information Visit Number 6/24 units; 2/8 visits Plan of Care Dates 03/28/21 - 06/20/21 Insurance Information EVAL CHARGE ONLY; then 24 OT units (8 visits @ 3 units per visit) asa aparicio. 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 Karissa went to inpatient rehab and discharged home in early November. 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 He is likely to resume outpatient DATA WAREHOUSE SPECIALIST in the new year and is limited by insurance. PLOF: Independent . - Subjective Identification Type Name Identification Reconciled With Medical Record Observations I have playing an instrument daily; nothing seems to be getting better with this. Texting is getting better; I am thinking about the right hand half of the time. I am feeling a little bit better about chopping; I feel that I am grasping a little bit better. No, I haven't been writing per Karissa. Patient Expectation/Goals Karissa would like to be able to return to playing instruments . Patient/Caregiver Compliance with Home Good Exercise Program - Objective Objective Measurements Please refer to below in re: progress towards meeting established goals. 03/08/21 = Writing sample obtained and scanned into EMR. Short Term Goals 1. Karissa will present with improved fine motor coordination of the right hand . This will be evidenced by Karissa completing task in 25.0 seconds or less with the right hand. 03/28 = 27.8 seconds 2. Karissa will present with improved coordination of the right hand. This will be evidenced by Karissa's verbal report of using his right thumb to formulate texts (in conjunction with the left thumb) on a daily basis over a 7-day period of time requiring increased time. 03/28 = 50% met; using thumb half of the time Dough Panner Goals 1. Karissa will be modified independent with home exercise program utilizing provided written and visual instructions from therapist. = 50% met 2. Karissa will present with improved functional abilities of the affected right hand; this will be evidenced by Karissa obtaining a score of 25. 0 or less on the QuickDASH UE Outcome measure. 3. Karissa will present with improved functional abilities of the affected right hand; this will be evidenced by Karissa obtaining a score of 50. 0 or less on the QuickDASH UE Outcome Sports/Performing Arts Module. 4. Karissa will present with improved ability to engage in meaningful activities with active incorporation of the affected hand; this will be evidenced by Karissa's verbal report of playing one of his musical instruments , 5+ days per week, for 30 minutes or more. 03/28/21 = 75% met (15 to 1 hour, 30 min). - Treatment 2 Descriptor Functional motor planning. Problem solving. 1 Descriptor Motor planning. Fine Motor planning. Bimanual coordination. Fine motor planning - writing/ drawing of music notes. - Assessment Assessment of Improvement Karissa has made some progress over the last certification period; he is reportedly playing musical instruments on a daily basis for 15 min to an 1 hour and half. Karissa denies seeing progress with his music playing and reports poor rhythm. Thus, revisited recommendation for metronome use. Karissa reports a little bit of progress with texting and meal preparation (chopping - grasping of chopping knife) . Karissa denies drawing and/or practicing of handwriting; thus, modified home exercise program to support engagement in this skill. Recommended copying of music notes and/or lyrics from familiar music sheets (with instruction on how to slightly upgrade activity). In addition, written instructions were provided to support carry-over . Karissa was able to complete 9 -Hole Peg Test with the right hand in less time. Overall, some progress is being made towards goals. Karissa would likely continue to benefit from skilled outpatient OT to address fine motor, bimanual difficulties, motor planning which continues to impact his ability to engage in a variety of meaningful activities. - Plan Therapy Recommendations Continue with Current Program, Advance per Rehabilitation Protocol Additional Therapy Recommendations Monitor insurance limitations Comment 12 weeks Comment 1 x every other week Therapeutic Contents Active Range of Motion, Adaptive Equipment Education, Client Education,Cognitive Skills Development,Functional Activities,Home Exercise Program,Joint Protection, Education,Neurodevelopment Treatment,Neuromuscular Re- Education,Self-Care, Therapeutic Activities, Therapeutic Exercises,Sensory Re-education Please Sign and Return: I have reviewed this Plan of Care and certify that the skilled therapy services above are required to meet the patient?s needs. Physician Signature Date Printed Name and Credentials Clinical Instructor Signature Printed Name and Credentials
--- NOTE | 2021-04-11 10:31 | OT.OP.TRT ---
Visit Care Team Role Provider Type Catalina Greenberg PA-C Attending Provider Non-Staff Family Provider Primary Care Provider Referring Provider Specialty: Medical Address: [address], [place], [address] Email: Occupational Therapy Treatment Note OT Outpatient Treatment Note - Adult Start: 01/23/21 15:50 Freq: Status: Active Protocol: Document 04/11/21 10:18 AMS (Rec: 04/11/21 10:30 AMS [id number]) OT Outpatient Adult Treatment Note Session Time Visit Start Time 09:30 Visit Stop Time 10:15 Total Visit Minutes 45 Visit Information Visit Number 9/24 units; 3/8 visits Plan of Care Dates 03/28/21 - 06/20/21 Insurance Information EVAL CHARGE ONLY; then 24 OT units (8 visits @ 3 units per visit) asa aparicio. 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 Karissa went to inpatient rehab and discharged home in early November. Karissa has received outpatient PT and since has been d/c; he has also received outpatient COAT ROOM ATTENDANT. He is likely to resume outpatient COAT ROOM ATTENDANT in the new year and is limited by insurance. PLOF: Independent . - Subjective Identification Type Name Identification Reconciled With Medical Record Observations I have been playing my guitar , flute, and my violin a little bit. I play throughout the day and it ends up being about 2 hours per Karissa. Patient/Caregiver Compliance with Home Good Exercise Program - Objective Objective Measurements Please refer to below in re: progress towards meeting established goals. Short Term Goals 1. Karissa will present with improved fine motor coordination of the right hand . This will be evidenced by Karissa completing task in 25.0 seconds or less with the right hand. 03/28 = 27.8 seconds 2. Karissa will present with improved coordination of the right hand. This will be evidenced by Karissa's verbal report of using his right thumb to formulate texts (in conjunction with the left thumb) on a daily basis over a 7-day period of time requiring increased time. 03/28 = 50% met; using thumb half of the time Intermediate Goals 1. Karissa will be modified independent with home exercise program utilizing provided written and visual instructions from therapist. = 50% met 2. Karissa will present with improved functional abilities of the affected right hand; this will be evidenced by Karissa obtaining a score of 25. 0 or less on the QuickDASH UE Outcome measure. 3. Karissa will present with improved functional abilities of the affected right hand; this will be evidenced by Karissa obtaining a score of 50. 0 or less on the QuickDASH UE Outcome Sports/Performing Arts Module. GOALS MET Verbal report of playing musical instrument(s), 5+ days per week, for 2 hours or more . *MET 04/11/21 - Treatment 2 Descriptor Functional motor planning. Problem solving. 1 Descriptor Motor planning. Fine Motor planning. Bimanual coordination. Fine motor planning. Writing. - Assessment Assessment of Improvement Karissa reported playing his instruments up to 2 hours within a given day; thus, he is playing his instruments more frequently/for longer periods of time within the home. Thus, he met established goal in this area. 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 Karissa reports a little bit of progress with texting and meal preparation (chopping - grasping of chopping knife). 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 Practiced writing down of x 2 choruses from 2 different songs within treatment session ; some errors made in spelling . However, able to self- correct. Karissa expressed that 'I didn't forget any words' with writing down the choruses . Based on success/positive response to activity in today' s treatment session, patient may be more likely to practice handwriting prior to next session. Overall, some progress is being made. Karissa would likely continue to benefit from skilled outpatient OT to address fine motor, bimanual difficulties, motor planning which continues to impact his ability to engage in a variety of meaningful activities. Home Exercise Program Recommended use of amparo on personal cellphone with right thumb only and typing texts with use of both thumbs. Recommended practicing chopping/slicing/knife use with softer items (and/or items that require larger cuts ). Recommended practicing handwriting via lycric/poetry composition. - Plan Therapy Recommendations Continue with Current Program, Advance per Rehabilitation Protocol
--- NOTE | 2021-04-26 14:57 | OT.OP.TRT ---
Visit Care Team Role Provider Type Catalina Greenberg PA-C Attending Provider Non-Staff Family Provider Primary Care Provider Referring Provider Specialty: Medical Address: [facility] [address], [place], [address] Email: Occupational Therapy Treatment Note OT Outpatient Treatment Note - Adult Start: 01/23/21 15:50 Freq: Status: Active Protocol: Document 04/26/21 14:47 AMS (Rec: 04/26/21 14:57 AMS [id number]) OT Outpatient Adult Treatment Note Session Time Visit Start Time 12:30 Visit Stop Time 13:15 Total Visit Minutes 45 Visit Information Visit Number 02/08 units; 4/ visits Plan of Care Dates 03/28/21 - 06/20/21 Insurance Information EVAL CHARGE ONLY; then 24 OT units (8 visits @ 3 units per visit) max markus. 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 Karissa went to inpatient rehab and discharged home in early November. 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 PLOF: Independent . - Subjective Identification Type Name Identification Reconciled With Medical Record Observations I have been meeting with kade 1 x a week for jamming sessions per Karissa. Patient/Caregiver Compliance with Home Good Exercise Program - Objective Objective Measurements Please refer to below in re: progress towards meeting established goals. Short Term Goals 1. Karissa will present with improved fine motor coordination of the right hand . This will be evidenced by Karissa completing task in 25.0 seconds or less with the right hand. 03/28 = 27.8 seconds 2. Karissa will present with improved coordination of the right hand. This will be evidenced by Karissa's verbal report of using his right thumb to formulate texts (in conjunction with the left thumb) on a daily basis over a 7-day period of time requiring increased time. 03/28 = 50% met; using thumb half of the time Half-Way Goals 1. Karissa will be modified independent with home exercise program utilizing provided written and visual instructions from therapist. = 50% met 2. Karissa will present with improved functional abilities of the affected right hand; this will be evidenced by Karissa obtaining a score of 25. 0 or less on the QuickDASH UE Outcome measure. 3. Karissa will present with improved functional abilities of the affected right hand; this will be evidenced by Karissa obtaining a score of 50. 0 or less on the QuickDASH UE Outcome Sports/Performing Arts Module. GOALS MET Verbal report of playing musical instrument(s), 5+ days per week, for 2 hours or more . *MET 04/11/21 - Treatment 2 Descriptor Functional motor planning. Problem solving. 1 Descriptor Motor planning. Fine Motor planning. Bimanual coordination. Fine motor planning. Writing. 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 Karissa has been playing the piano; instruction on ' checking' curvature of fingers of the right hand versus left hand based on clinical observations in session. Karissa brought in personal notebook/ journal w/ unlined paper that he has been writing in over the last couple of weeks; he feels that his writing is getting better but dislikes his current signature. Encouraged Karissa to locate a signature pre-stroke for comparison purposes. Karissa reported that texting on his personal cell phone is getting a bit better but he still needs more time to complete when using bilateral hands. Overall, good session. Home Exercise Program Recommended locating pre- stroke signature for comparison purposes and continuing to participate in written tasks. Recommended chain link exercise, finger tapping (forwards and backwards versus isolated taps versus thumb left <-> right taps) unilaterally versus bilaterally to music, and monitoring curvature of fingers w/ piano playing. - Plan Therapy Recommendations Continue with Current Program, Advance per Rehabilitation Protocol
--- NOTE | 2021-05-10 14:26 | OT.OP.TRT ---
Visit Care Team Role Provider Type Catalina Greenberg PA-C Attending Provider Non-Staff Family Provider Primary Care Provider Referring Provider Specialty: Medical Address: [address], [place], [address] Email: Occupational Therapy Treatment Note OT Outpatient Treatment Note - Adult Start: 01/23/21 15:50 Freq: Status: Active Protocol: Document 05/10/21 13:22 AMS (Rec: 05/10/21 14:26 AMS [id number]) OT Outpatient Adult Treatment Note Session Time Visit Start Time 12:30 Visit Stop Time 13:15 Total Visit Minutes 45 Visit Information Visit Number 15/24 units; 5/8 visits Plan of Care Dates 03/28/21 - 06/20/21 Insurance Information EVAL CHARGE ONLY; then 24 OT units (8 visits @ 3 units per visit) max markus. 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 Karissa went to inpatient rehab and discharged home in early November. 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 PLOF: Independent . - Subjective Identification Type Name Identification Reconciled With Medical Record Observations I need to re-focus my thoughts per Karissa. Patient/Caregiver Compliance with Home Good Exercise Program - Objective Objective Measurements Please refer to below in re: progress towards meeting established goals. Short Term Goals 1. Karissa will present with improved coordination of the right hand. This will be evidenced by Karissa's verbal report of using his right thumb to formulate texts (in conjunction with the left thumb) on a daily basis over a 7-day period of time requiring increased time. 05/10 = 50% met; using thumb half of the time GOALS MET Completed 9-Hole Peg Test in 25.0 seconds or less with the right hand. 05/10/21 = 22.6 seconds (versus initial 30.4 seconds) Retirement Goals 1. Karissa will be modified independent with home exercise program utilizing provided written and visual instructions from therapist. = 50% met 2. Karissa will present with improved functional abilities of the affected right hand; this will be evidenced by Karissa obtaining a score of 25. 0 or less on the QuickDASH UE Outcome measure. 3. Karissa will present with improved functional abilities of the affected right hand; this will be evidenced by Karissa obtaining a score of 50. 0 or less on the QuickDASH UE Outcome Sports/Performing Arts Module. GOALS MET Verbal report of playing musical instrument(s), 5+ days per week, for 2 hours or more . *MET 04/11/21 - Treatment 2 Descriptor Functional motor planning. Problem solving. 1 Descriptor Motor planning. Fine Motor planning. Bimanual coordination. Fine motor planning. Writing. 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 Discussed use of standard tools and progressing to power based tools. Karissa did not locate signature pre-stroke for comparison purposes as directed at last treatment session; encouraged to do so prior to next treatment session. Karissa requested administration of standardized assessment; met short term goal in this area. Able to complete 9-Hole Peg Test in 22 .6 seconds versus initial 30.4 seconds. Performance suggests improving fine motor coordination of the right hand . Karissa expressed concern(s) re: lack of progress/plateau. Education was provided re: neuroplasticity and motor planning and focusing on completion of tasks w/ the right hand; discussed potential placement of left hand in pocket to encourage right hand use. Overall, good session. - Plan Therapy Recommendations Continue with Current Program, Advance per Rehabilitation Protocol
--- NOTE | 2021-05-24 13:45 | OT.OP.TRT ---
Visit Care Team Role Provider Type Catalina Greenberg PA-C Attending Provider Non-Staff Family Provider Primary Care Provider Referring Provider Specialty: Medical Address: [address], [place], [address] Email: Occupational Therapy Treatment Note OT Outpatient Treatment Note - Adult Start: 01/23/21 15:50 Freq: Status: Active Protocol: Document 05/24/21 13:26 AMS (Rec: 05/24/21 13:45 AMS [id number]) OT Outpatient Adult Treatment Note Session Time Visit Start Time 12:30 Visit Stop Time 13:15 Total Visit Minutes 45 Visit Information Visit Number 09/27 visits Plan of Care Dates 03/28/21 - 06/20/21 Insurance Information EVAL CHARGE ONLY; 12 vists per year Setting Treatment Setting Outpatient Care Visit Type Note Type Treatment Note General Information General Information Patient is a 50 year-old, right hand dominant male referred to outpatient OT secondary to 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 Karissa went to inpatient rehab and discharged home in early November. Karissa has received outpatient PT and since has been d/c; he has also received outpatient PROCESS DESCRIPTION WRITER. He is likely to resume outpatient PROCESS DESCRIPTION WRITER in the new year and is limited by insurance. PLOF: Independent . - Subjective Identification Type Name Identification Reconciled With Medical Record Observations The last 2 weeks I have been focusing on parenting my 2 kids per Karissa. Patient/Caregiver Compliance with Home Good Exercise Program - Objective Objective Measurements Please refer to below in re: progress towards meeting established goals. Short Term Goals 1. Karissa will present with improved coordination of the right hand. This will be evidenced by Karissa's verbal report of using his right thumb to formulate texts (in conjunction with the left thumb) on a daily basis over a 7-day period of time requiring increased time. = 75% met; 'sometimes my thumb hangs down' GOALS MET Completed 9-Hole Peg Test in 25.0 seconds or less with the right hand. 05/10/21 = 22.6 seconds (versus initial 30.4 seconds) Dye Line Operator Goals 1. Karissa will be modified independent with home exercise program utilizing provided written and visual instructions from therapist. = 50% met 2. Karissa will present with improved functional abilities of the affected right hand; this will be evidenced by Karissa obtaining a score of 25. 0 or less on the QuickDASH UE Outcome measure. 05/24/21 = 75% met; obtained score = 29. 55 3. Karissa will present with improved functional abilities of the affected right hand; this will be evidenced by Karissa obtaining a score of 25. 0 or less on QuickDASH UE Outcome Sports/ Performing Arts Module. 05/24/21 = GOAL UPGRADED GOALS MET Verbal report of playing musical instrument(s), 5+ days per week, for 2 hours or more . *MET 04/11/21 Karissa will present with improved functional abilities of the affected right hand; this will be evidenced by Karissa obtaining a score of 50. 0 or less on QuickDASH UE Outcome Sports/Performing Arts Module. *MET 05/24/21 - Treatment 2 Descriptor Functional motor planning. Problem solving. 1 Descriptor Motor planning. Fine Motor planning. Bimanual coordination. Fine motor planning. Writing. - Assessment Assessment of Improvement Therapist had Karissa complete QuickDASH UE Outcome Measure and QuickDASH UE Outcome Sports/Performing Arts Modules (for violin and shop use); scores indicate improving functional abilities of the right upper extremity. He even met [facility] goal for increasing ability to play his violin. Therapist also administered the Asael VMI Motor Coordination Subtest; Karissa's performance on the Motor Coordination subtest suggests that his fine motor abilities are less than/ impaired when compared to his same aged peers (Raw Score = 23; Standard Score = 80; Scaled Score = 6; Percentile Rank = 9; Categorization of Performance = Below Average) to provide Karissa w/ an objective measure. Karissa continues to report and have difficulty utilizing the right hand/upper extremity to engage in meaningful activities. Recommend scheduling of additional visits. Home Exercise Program Reviewed importance of utilizing the right hand w/ completion of day-to-day tasks . - Plan Therapy Recommendations Continue with Current Program, Advance per Rehabilitation Protocol
--- NOTE | 2021-07-05 15:23 | OT.OPPN ---
Current Diagnoses Cerebral infarction, unspecified (07/05/21) Other lack of coordination (07/05/21) OT Progress Note OT Outpatient Standardized Assessments Start: 01/23/21 15:50 Freq: Status: Active Protocol: Document 07/05/21 15:12 AMS (Rec: 07/05/21 15:23 AMS [id number]) Asael AVALOSI Date of Test Date of Test Motor Coordination Subtest = Motor Coordination Raw Score 23 Standard Score 80 Scaled Score 6 Percentile Score 9 Interpretation of Standard Score Below Average (80-89) 9-Hole Peg Hand Test Hand Left Date of Test 01/23/21 Therapist JANET Lebron/Kalyn Comments Scoring Time = 25.5 seconds Norms for 50-54 year-old males = 20.7 +/- 2.3 seconds Right Date of Test 03/28/21 Therapist JANET Lebron/Kalyn Comments Scoring Time = 22.6 seconds 03/28/21 = 27.8 seconds 01/23/21 = Scoring Time = 30.4 seconds Norms for 50-54 year-old males = 19.2 +/- 1.8 seconds OT Outpatient Treatment Note - Adult Start: 01/23/21 15:50 Freq: Status: Active Protocol: Document 07/05/21 15:12 AMS (Rec: 07/05/21 15:23 AMS [id number]) OT Outpatient Adult Treatment Note Session Time Visit Start Time 12:30 Visit Stop Time 13:15 Total Visit Minutes 45 Visit Information Visit Number 10/28 visits Plan of Care Dates 06/20/21 - 08/29/21 Insurance Information EVAL CHARGE ONLY; 12 vists per year Setting Treatment Setting Outpatient Care Visit Type Note Type Progress Note General Information General Information Patient is a 50 year-old, right hand dominant male referred to outpatient OT secondary to 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 Karissa went to inpatient rehab and discharged home in early November. Karissa has received outpatient PT and since has been d/c; he has also received outpatient TOOL SHARPENER. He is likely to resume outpatient TOOL SHARPENER in the new year and is limited by insurance. PLOF: Independent . - Subjective Identification Type Name Identification Reconciled With Medical Record Observations I think texting and playing instruments are getting better but really slow per Karissa. I am now able to play a song on the guitar per Karissa. Patient/Caregiver Compliance with Home Good Exercise Program - Objective Objective Measurements Please refer to below in re: progress towards meeting established goals. Short Term Goals 1. Karissa will present with improved coordination of the right hand. This will be evidenced by Karissa's verbal report of using his right thumb to formulate texts (in conjunction with the left thumb) on a daily basis over a 7-day period of time requiring increased time. 07/05 = 75% met; 'sometimes my thumb hangs down' GOALS MET Completed 9-Hole Peg Test in 25.0 seconds or less with the right hand. 05/10/21 = 22.6 seconds (versus initial 30.4 seconds) Dye Padder Operator Goals 1. Karissa will be modified independent with home exercise program utilizing provided written and visual instructions from therapist. = 50% met 2. Karissa will present with improved functional abilities of the affected right hand; this will be evidenced by Karissa obtaining a score of 25. 0 or less on the QuickDASH UE Outcome measure. 05/24/21 = 75% met; obtained score = 29. 55 3. Karissa will present with improved functional abilities of the affected right hand; this will be evidenced by Karissa obtaining a score of 25. 0 or less on QuickDASH UE Outcome Sports/ Performing Arts Module. 05/24/21 = GOAL UPGRADED GOALS MET Verbal report of playing musical instrument(s), 5+ days per week, for 2 hours or more . *MET 04/11/21 Karissa will present with improved functional abilities of the affected right hand; this will be evidenced by Karissa obtaining a score of 50. 0 or less on QuickDASH UE Outcome Sports/Performing Arts Module. *MET 05/24/21 - Treatment 2 Descriptor Functional motor planning. Problem solving. 1 Descriptor Motor planning. Fine Motor planning. Bimanual coordination. Fine motor planning. Writing. Drawing. - Assessment Assessment of Improvement Slight gap in treatment occurred d/t therapist illness (05/24/21 --> 07/05/21). Karissa has demonstrated progress over the last certification period relative to motor planning, awareness of digits/upper extremity in space, and coordination abilities. Karissa is now playing songs on his guitar 'with his band' versus focused practice on chords and tempo and is actively playing his violin. He is 'getting better' with texting with his right hand w/ use of personal cell phone. Therapist had Karissa complete QuickDASH UE Outcome Measure and QuickDASH UE Outcome Sports/Performing Arts Modules (for violin and shop use); scores indicated improved functional abilities of the right upper extremity. Despite progress Karissa continues to report having difficulty utilizing the right hand/upper extremity to engage in meaningful activities. Thus, he would likely benefit from continued skilled outpatient services. Home Exercise Program Recommended use of personal art book - free form drawing/ coloring. - Plan Therapy Recommendations Continue with Current Program, Advance per Rehabilitation Protocol Additional Therapy Recommendations Monitor insurance limitations Comment 10 weeks Comment 1 x every other week Therapeutic Contents Active Range of Motion, Adaptive Equipment Education, Client Education,Cognitive Skills Development,Functional Activities,Home Exercise Program,Joint Protection, Education,Neurodevelopment Treatment,Neuromuscular Re- Education,Self-Care,Stretching /Flexibility Activities, Therapeutic Activities, Therapeutic Exercises,Sensory Re-education If you are in agreement with this Plan of Care, please return a signed and dated copy. I have reviewed this Plan of Care and certify that the skilled therapy services above are required to meet the patient?s needs. Physician Signature Date Printed Name and Credentials Clinical Instructor Signature Printed Name and Credentials
--- NOTE | 2021-07-19 16:02 | OT.OP.TRT ---
Visit Care Team Role Provider Type Catalina Greenberg PA-C Attending Provider Non-Staff Family Provider Primary Care Provider Referring Provider Specialty: Medical Address: [address], [place], [address] Email: Occupational Therapy Treatment Note OT Outpatient Treatment Note - Adult Start: 01/23/21 15:50 Freq: Status: Active Protocol: Document 07/19/21 15:50 AMS (Rec: 07/19/21 16:02 AMS [id number]) OT Outpatient Adult Treatment Note Session Time Visit Start Time 12:30 Visit Stop Time 13:15 Total Visit Minutes 45 Visit Information Visit Number 11/27 visits Plan of Care Dates 06/20/21 - 08/29/21 Insurance Information EVAL CHARGE ONLY; 12 vists per year Setting Treatment Setting Outpatient Care Visit Type Note Type Treatment Note General Information General Information Patient is a 50 year-old, right hand dominant male referred to outpatient OT secondary to 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 Karissa went to inpatient rehab and discharged home in early November. Karissa has received outpatient PT and since has been d/c; he has also received outpatient LUMBER SCALER. He is likely to resume outpatient LUMBER SCALER in the new year and is limited by insurance. PLOF: Independent . - Subjective Identification Type Name Identification Reconciled With Medical Record Observations I am using my art journal for record keeping for my doctor per Karissa. I feel that I am slowly getting the strength back in my arms. I am more relaxed when cooking and I am able to play more of a variety of music. I am having a hard time w/ the flute and whistle per Karissa. Patient/Caregiver Compliance with Home Good Exercise Program - Objective Objective Measurements Please refer to below in re: progress towards meeting established goals. Short Term Goals 1. Karissa will present with improved coordination of the right hand. This will be evidenced by Karissa's verbal report of using his right thumb to formulate texts (in conjunction with the left thumb) on a daily basis over a 7-day period of time requiring increased time. 07/05 = 75% met; 'sometimes my thumb hangs down' GOALS MET Completed 9-Hole Peg Test in 25.0 seconds or less with the right hand. 05/10/21 = 22.6 seconds (versus initial 30.4 seconds) Detention Goals 1. Caven will be modified independent with home exercise program utilizing provided written and visual instructions from therapist. = 50% met 2. Izzyn will present with improved functional abilities of the affected right hand; this will be evidenced by Izzyn obtaining a score of 25. 0 or less on the QuickDASH UE Outcome measure. 05/24/21 = 75% met; obtained score = 29. 55 3. Izzyn will present with improved functional abilities of the affected right hand; this will be evidenced by Izzyn obtaining a score of 25. 0 or less on QuickDASH UE Outcome Sports/ Performing Arts Module. 05/24/21 = GOAL UPGRADED GOALS MET Verbal report of playing musical instrument(s), 5+ days per week, for 2 hours or more . *MET 04/11/21 Caven will present with improved functional abilities of the affected right hand; this will be evidenced by Karissa obtaining a score of 50. 0 or less on QuickDASH UE Outcome Sports/Performing Arts Module. *MET 05/24/21 - Treatment 2 Descriptor Functional motor planning. Problem solving. 1 Descriptor Motor planning. Fine Motor planning. Bimanual coordination. Fine motor planning. Writing. Drawing. - Assessment Assessment of Improvement Reported progress with upper extremity strength and ability to play a larger variety of music; however, continued difficulties reported with rhythm and playing violin, flute, and whistle. Discussed activities to support dissociation of digits of the right hand w/ playing music, as well as varying force w/ use of piano/et cetera. Karissa would likely benefit from continued skilled outpatient services; will need to monitor insurance limitations. Home Exercise Program Recommended use of art book/ opposite side of chart for MD for drawing/coloring. Discussed multiple reps w/ dissociation of digits; graded activities w/ motor coordination of digits of the hand. - Plan Therapy Recommendations Continue with Current Program, Advance per Rehabilitation Protocol Additional Therapy Recommendations Monitor insurance limitations
--- NOTE | 2021-08-23 14:47 | OT.OPPN ---
Current Diagnoses Cerebral infarction, unspecified (08/23/21) Other lack of coordination (08/23/21) OT Progress Note OT Outpatient Standardized Assessments Start: 01/23/21 15:50 Freq: Status: Active Protocol: Document 07/05/21 15:12 AMS (Rec: 07/05/21 15:23 AMS [id number]) Asael AVALOSI Date of Test Date of Test Motor Coordination Subtest = Motor Coordination Raw Score 23 Standard Score 80 Scaled Score 6 Percentile Score 9 Interpretation of Standard Score Below Average (80-89) 9-Hole Peg Hand Test Hand Left Date of Test 01/23/21 Therapist JANET Lebron/Kalyn Comments Scoring Time = 25.5 seconds Norms for 50-54 year-old males = 20.7 +/- 2.3 seconds Right Date of Test 03/28/21 Therapist JANET Lebron/Kalyn Comments Scoring Time = 22.6 seconds 03/28/21 = 27.8 seconds 01/23/21 = Scoring Time = 30.4 seconds Norms for 50-54 year-old males = 19.2 +/- 1.8 seconds OT Outpatient Treatment Note - Adult Start: 01/23/21 15:50 Freq: Status: Active Protocol: Document 08/23/21 14:37 AMS (Rec: 08/23/21 14:47 AMS [id number]) OT Outpatient Adult Treatment Note Session Time Visit Start Time 12:30 Visit Stop Time 13:15 Total Visit Minutes 45 Visit Information Visit Number 11 visits Plan of Care Dates 08/23/21 - 11/01/21 Insurance Information EVAL CHARGE ONLY; 12 vists per year Setting Treatment Setting Outpatient Care Visit Type Note Type Progress Note General Information General Information Patient is a 51 year-old, right hand dominant male referred to outpatient OT secondary to 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 Karissa went to inpatient rehab and discharged home in early November. Karissa has received outpatient PT and since has been d/c; he has also received outpatient OVERHEAD DOOR TECHNICIAN. He is likely to resume outpatient OVERHEAD DOOR TECHNICIAN in the new year and is limited by insurance. PLOF: Independent . - Subjective Identification Type Name Identification Reconciled With Medical Record Observations I feel things are going okay with the fiddle, fiordaliza whistle and flute. I am having a hard time playing the guitar and Dobro per Karissa. Patient/Caregiver Compliance with Home Good Exercise Program - Objective Objective Measurements Please refer to below in re: progress towards meeting established goals. Short Term Goals 1. Karissa will present with improved coordination of the right hand. This will be evidenced by Karissa's verbal report of using his right thumb to formulate texts (in conjunction with the left thumb) on a daily basis over a 7-day period of time requiring increased time. = 75% met; 'sometimes my thumb hangs down' GOALS MET Completed 9-Hole Peg Test in 25.0 seconds or less with the right hand. 05/10/21 = 22.6 seconds (versus initial 30.4 seconds) Long-Term Goals 1. Karissa will be modified independent with home exercise program utilizing provided written and visual instructions from therapist. = 75% met 2. Karissa will present with improved functional abilities of the affected right hand; this will be evidenced by Karissa obtaining a score of 25. 0 or less on the QuickDASH UE Outcome measure. 08/23/21 = 75% met; obtained score = 29.55 3. Karissa will present with improved functional abilities of the affected right hand; this will be evidenced by Karissa obtaining a score of 25. 0 or less on QuickDASH UE Outcome Sports/ Performing Arts Module. 08/23/21 = 25% met GOALS MET Verbal report of playing musical instrument(s), 5+ days per week, for 2 hours or more . *MET 04/11/21 Karissa will present with improved functional abilities of the affected right hand; this will be evidenced by Karissa obtaining a score of 50. 0 or less on QuickDASH UE Outcome Sports/Performing Arts Module. *MET 05/24/21 - Treatment 2 Descriptor Functional motor planning. Problem solving. 1 Descriptor Motor planning. Fine Motor planning. Bimanual coordination. Fine motor planning. Writing. Drawing. - Assessment Assessment of Improvement Karissa has demonstrated some progress over the last certification period; he is self-reporting progress relative to upper extremity strength, ability to play a larger variety of music, and increasing success with rhythm and playing the fiddle, fiordaliza whistle and flute. Karissa expressed concerns re: lack of progress with playing the guitar/Dobro. He reports decreased motor planning with and without use of pick with playing of these instruments. Discussed activities to support success w/ use of pick (pre- warm-up to playing w/ pick in R hand w/ feedback from contralateral hand and rotational component) and motor planning of the right hand (finding correlation between finger movements). Karissa would likely benefit from continued skilled outpatient services; however, therapist will need to continue to monitor insurance limitations. Home Exercise Program Recommended use of art book/ opposite side of chart for MD for drawing/coloring. Discussed multiple reps w/ dissociation of digits; graded activities w/ motor coordination of digits of the hand. - Plan Therapy Recommendations Continue with Current Program, Advance per Rehabilitation Protocol Additional Therapy Recommendations Monitor insurance limitations Comment 10 weeks Comment 1 x every other week vs 1 x a week Therapeutic Contents Active Range of Motion, Adaptive Equipment Education, Client Education,Cognitive Skills Development,Functional Activities,Home Exercise Program,Joint Protection, Education,Neurodevelopment Treatment,Neuromuscular Re- Education,Self-Care, Therapeutic Activities, Therapeutic Exercises If you are in agreement with this Plan of Care, please return a signed and dated copy. I have reviewed this Plan of Care and certify that the skilled therapy services above are required to meet the patient?s needs. Physician Signature Date Printed Name and Credentials Clinical Instructor Signature Printed Name and Credentials
--- NOTE | 2021-09-26 14:31 | OT.OP.TRT ---
Visit Care Team Role Provider Type Catalina Greenberg PA-C Attending Provider Non-Staff Family Provider Primary Care Provider Referring Provider Specialty: Medical Address: [facility] [address], [place], [address] Email: Occupational Therapy Treatment Note OT Outpatient Treatment Note - Adult Start: 01/23/21 15:50 Freq: Status: Active Protocol: Document 09/26/21 14:25 AMS (Rec: 09/26/21 14:31 AMS [id number]) OT Outpatient Adult Treatment Note Session Time Visit Start Time 13:30 Visit Stop Time 14:15 Total Visit Minutes 45 Visit Information Visit Number 11/27 visits Plan of Care Dates 08/23/21 - 11/01/21 Insurance Information EVAL CHARGE ONLY; 12 vists per year Setting Treatment Setting Outpatient Care Visit Type Note Type Treatment Note General Information General Information Patient is a 51 year-old, right hand dominant male referred to outpatient OT secondary to 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 Karissa went to inpatient rehab and discharged home in early November. Karissa has received outpatient PT and since has been d/c; he has also received outpatient CARD SELLER. He is likely to resume outpatient CARD SELLER in the new year and is limited by insurance. PLOF: Independent . - Subjective Identification Type Name Identification Reconciled With Medical Record Observations I have been practicing with the pick per Karissa. Everything is a little bit better per Karissa. Patient/Caregiver Compliance with Home Good Exercise Program - Objective Objective Measurements Please refer to below in re: progress towards meeting established goals. Short Term Goals 1. Karissa will present with improved coordination of the right hand. This will be evidenced by Izzyluis's verbal report of using his right thumb to formulate texts (in conjunction with the left thumb) on a daily basis over a 7-day period of time requiring increased time. 09/26 = 75% met; 'sometimes my thumb hangs down' GOALS MET Completed 9-Hole Peg Test in 25.0 seconds or less with the right hand. 05/10/21 = 22.6 seconds (versus initial 30.4 seconds) Developer Designer Goals 1. Karissa will be modified independent with home exercise program utilizing provided written and visual instructions from therapist. = 75% met 2. Karissa will present with improved functional abilities of the affected right hand; this will be evidenced by Karissa obtaining a score of 25. 0 or less on the QuickDASH UE Outcome measure . 08/23/21 = 75% met; obtained score = 29.55 3. Karissa will present with improved functional abilities of the affected right hand; this will be evidenced by Karissa obtaining a score of 25. 0 or less on QuickDASH UE Outcome Sports/Performing Arts Module. 08/23/21 = 25% met GOALS MET Verbal report of playing musical instrument(s), 5+ days per week, for 2 hours or more . *MET 04/11/21 Karissa will present with improved functional abilities of the affected right hand; this will be evidenced by Karissa obtaining a score of 50. 0 or less on QuickDASH UE Outcome Sports/Performing Arts Module. *MET 05/24/21 - Treatment 2 Descriptor Functional motor planning. Problem solving. - Assessment Assessment of Improvement Karissa indicated that he had gotten 'a little bit better' with multiple tasks/activities (e.g., texting, keyboarding - composing e-mails; playing instruments) since time of previous treatment session. He reported having difficulty ' starting in'; actively problem solved w/ Karissa re: practicing 'starting in' with his music. Karissa would likely benefit from continued skilled outpatient services; however, therapist will need to continue to monitor insurance limitations. - Plan Therapy Recommendations Continue with Current Program, Advance per Rehabilitation Protocol Additional Therapy Recommendations Monitor insurance limitations
--- NOTE | 2021-10-23 11:40 | OT.OP.TRT ---
Visit Care Team Role Provider Type Catalina Greenberg PA-C Attending Provider Non-Staff Family Provider Primary Care Provider Referring Provider Specialty: Medical Address: [address], [place], [address] Email: Occupational Therapy Treatment Note OT Outpatient Treatment Note - Adult Start: 01/23/21 15:50 Freq: Status: Active Protocol: Document 10/23/21 11:30 AMS (Rec: 10/23/21 11:40 AMS [id number]) OT Outpatient Adult Treatment Note Session Time Visit Start Time 10:30 Visit Stop Time 11:15 Total Visit Minutes 45 Visit Information Visit Number 11/12 visits Plan of Care Dates 08/23/21 - 11/01/21 Insurance Information EVAL CHARGE ONLY; 12 vists per year Setting Treatment Setting Outpatient Care Visit Type Note Type Treatment Note General Information General Information Patient is a 51 year-old, right hand dominant male referred to outpatient OT secondary to 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 Karissa went to inpatient rehab and discharged home in early November. Karissa has received outpatient PT and since has been d/c; he has also received outpatient BUILDING ENGINEER. He is likely to resume outpatient BUILDING ENGINEER in the new year and is limited by insurance. PLOF: Independent . - Subjective Identification Type Name Identification Reconciled With Medical Record Observations Everything is a little bit better per Karissa. I am no longer working with Jennifer anais Izzyluis. Patient/Caregiver Compliance with Home Good Exercise Program - Objective Objective Measurements Please refer to below in re: progress towards meeting established goals. Short Term Goals 1. Karissa will present with improved coordination of the right hand. This will be evidenced by Karissa's verbal report of using his right thumb to formulate texts (in conjunction with the left thumb) on a daily basis over a 7-day period of time requiring increased time. = 75% met; rec cell phone in R pocket d/t neglect/ forgetfullness GOALS MET Completed 9-Hole Peg Test in 25.0 seconds or less with the right hand. 05/10/21 = 22.6 seconds (versus initial 30.4 seconds) Alf Goals 1. Karissa will be modified independent with home exercise program utilizing provided written and visual instructions from therapist. = 75% met 2. Karissa will present with improved functional abilities of the affected right hand; this will be evidenced by Karissa obtaining a score of 25. 0 or less on the QuickDASH UE Outcome measure . 08/23/21 = 75% met; obtained score = 29.55 3. Karissa will present with improved functional abilities of the affected right hand; this will be evidenced by Izzyn obtaining a score of 25. 0 or less on QuickDASH UE Outcome Sports/Performing Arts Module. 08/23/21 = 25% met GOALS MET Verbal report of playing musical instrument(s), 5+ days per week, for 2 hours or more . *MET 04/11/21 Caven will present with improved functional abilities of the affected right hand; this will be evidenced by Karissa obtaining a score of 50. 0 or less on QuickDASH UE Outcome Sports/Performing Arts Module. *MET 05/24/21 - Treatment 2 Descriptor Functional motor planning. Problem solving. - Assessment Assessment of Improvement Karissa reported practicing ' starting in' on own w/ reported increasing success and decreased concern re: this aspect of playing music! Report of neglect versus forgetfullness w/ incorporation of R hand w/ texting; recommended considering placement of cellphone in R pocket of LB dressing. (+) success w/ management of pick for instrument playing w/ 3 fingers of R hand! (+) success w/ use of chain saw. Discussed trialing drums and bag pipes given denial of trying these instruments since stroke. Karissa would likely benefit from continued skilled outpatient services; however, therapist will need to continue to monitor insurance limitations. - Plan Therapy Recommendations Continue with Current Program, Advance per Rehabilitation Protocol Additional Therapy Recommendations Monitor insurance limitations
--- NOTE | 2021-11-07 15:56 | OT.OPPN ---
Current Diagnoses Cerebral infarction, unspecified (11/07/21) Other lack of coordination (11/07/21) OT Progress Note OT Outpatient Standardized Assessments Start: 01/23/21 15:50 Freq: Status: Active Protocol: Document 07/05/21 15:12 AMS (Rec: 07/05/21 15:23 AMS [id number]) Asael AVALOSI Date of Test Date of Test Motor Coordination Subtest = Motor Coordination Raw Score 23 Standard Score 80 Scaled Score 6 Percentile Score 9 Interpretation of Standard Score Below Average (80-89) 9-Hole Peg Hand Test Hand Left Date of Test 01/23/21 Therapist Lissett Braga MSOTR/Kalyn Comments Scoring Time = 25.5 seconds Norms for 50-54 year-old males = 20.7 +/- 2.3 seconds Right Date of Test 03/28/21 Therapist Lissett Braga MSOTR/Kalyn Comments Scoring Time = 22.6 seconds 03/28/21 = 27.8 seconds 01/23/21 = Scoring Time = 30.4 seconds Norms for 50-54 year-old males = 19.2 +/- 1.8 seconds OT Outpatient Treatment Note - Adult Start: 01/23/21 15:50 Freq: Status: Active Protocol: Document 11/07/21 14:26 AMS (Rec: 11/07/21 14:31 AMS [id number]) OT Outpatient Adult Treatment Note Session Time Visit Start Time 13:40 Visit Stop Time 14:15 Total Visit Minutes 35 Visit Information Visit Number 01/27 visits Plan of Care Dates 11/01/21 - 11/08/21 Insurance Information EVAL CHARGE ONLY; 12 vists per year Setting Treatment Setting Outpatient Care General Information General Information Patient is a 51 year-old, right hand dominant male referred to outpatient OT secondary to 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 Karissa went to inpatient rehab and discharged home in early November. Karissa has received outpatient PT and since has been d/c; he has also received outpatient NETWORK ARCHITECT. He is likely to resume outpatient NETWORK ARCHITECT in the new year and is limited by insurance. PLOF: Independent . - Subjective Identification Type Name Identification Reconciled With Medical Record Observations No new concerns were reported. I have not tried the bagpipes yet per Karissa. QuickDASH UE Outcome Score = 15.91; QuickDASH UE Work Module/Music Score = 50.0. Patient/Caregiver Compliance with Home Good Exercise Program - Objective Objective Measurements Please refer to below in re: progress towards meeting established goals. Short Term Goals GOALS MET Completed 9-Hole Peg Test in 25.0 seconds or less with the right hand. *MET 05/10/21 = 22. 6 seconds (versus initial 30.4 seconds) Karissa will present with improved coordination of the right hand. This will be evidenced by Karissa's verbal report of using his right thumb to formulate texts (in conjunction with the left thumb) on a daily basis over a 7-day period of time requiring increased time. *MET 11/07/21 Half-Way Goals GOALS MET Karissa will be modified independent with home exercise program utilizing provided written and visual instructions from therapist. * MET 11/07/21 Karissa will present with improved functional abilities of the affected right hand; this will be evidenced by Karissa obtaining a score of 25. 0 or less on the QuickDASH UE Outcome measure. * MET = 15.91 versus initial 43. 2 GOALS D/C Karissa will present with improved functional abilities of the affected right hand; this will be evidenced by Karissa obtaining a score of 25. 0 or less on QuickDASH UE Outcome Sports/Performing Arts Module. 11/07/21 = Score = 50.0 versus initial 87.5 GOALS MET Verbal report of playing musical instrument(s), 5+ days per week, for 2 hours or more . *MET 04/11/21 Karissa will present with improved functional abilities of the affected right hand; this will be evidenced by Karissa obtaining a score of 50. 0 or less on QuickDASH UE Outcome Sports/Performing Arts Module. *MET 05/24/21 - Treatment 2 Descriptor Functional motor planning. Problem solving. HEP. - Assessment Assessment of Improvement Karissa reported observed progress in variety of functional areas since time of initial evaluation, including musical instruments, keyboarding, and use of cell phone. Given insurance limitations and noted progress , recommend d/c from OT to HEP at this time. - Plan Therapy Recommendations Discharge from Occupational Therapy Comment 1 x every other week Frequency of Treatment Once a Week If you are in agreement with this Plan of Care, please return a signed and dated copy. I have reviewed this Plan of Care and certify that the skilled therapy services above are required to meet the patient?s needs. Physician Signature Date Printed Name and Credentials Clinical Instructor Signature Printed Name and Credentials
--- NOTE | 2021-11-07 15:57 | OT.OP.DC ---
Visit Care Team Role Provider Type Catalina Greenberg PA-C Attending Provider Non-Staff Family Provider Primary Care Provider Referring Provider Address: [address], [place], [address] Email: OT Outpatient OT Outpatient Adult Evaluation Start: 01/23/21 15:50 Freq: Status: Active Protocol: Document 01/23/21 15:50 AMS (Rec: 01/23/21 15:54 AMS [id number]) General Information Session Time Visit Start Time 12:30 Visit Stop Time 13:15 Total Visit Minutes 45 Visit Information Plan of Care Dates 01/23/21 - 03/27/21 Insurance Information EVAL CHARGE ONLY; then 24 OT units (8 visits @ 3 units per visit) max markus. Setting Treatment Setting Outpatient Care Visit Type Note Type Initial Evaluation Goals Short Term Goals Short Term Goals 1. Karissa will present with improved fine motor coordination of the right hand . This will be evidenced by Karissa completing task in 25.0 seconds or less with the right hand. Project Management Engineer Goals Project Management Engineer Goals 1. Karissa will be modified independent with home exercise program utilizing provided written and visual instructions from therapist. 2. Karissa will present with improved functional abilities of the affected right hand; this will be evidenced by Karissa obtaining a score of 25. 0 or less on the QuickDASH UE Outcome measure. 3. Karissa will present with improved functional abilities of the affected right hand; this will be evidenced by Karissa obtaining a score of 50. 0 or less on the QuickDASH UE Outcome Sports/Performing Arts Module. 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 Karissa went to inpatient rehab and discharged home in early November. 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 He is likely to resume outpatient CHIEF CLOTH FINISHING RANGE OPERATOR in the new year and is limited by insurance. PLOF: Independent . 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 Karissa would like to be able to return to playing instruments . Evaluation Findings: Able to oppose thumb to each digit pad bilaterally with EO and EC; he had mild difficulty executing thumb slides with the right hand to each digit pad. Karissa reports impaired sensation of the hand; however , is able to sense 'firm' touch. This is reportedly impacting his ability to 'feel ' the strings/coordinate the bow of the violin. Karissa did have mild difficulty with in- hand manipulation skills of the right hand; he struggled with separation of the 2 sides of the hand and efficient rotation and translation of smaller objects. Karissa completed the 9-Hole Peg test in 30.4 seconds w/ the right hand and in 25.5 seconds with the left hand. He obtained a QuickDASH UE Outcome Measure Score of 43.2 and QuickDASH UE Outcome Sports/Performing Arts Module Score = 87.5. Karissa denied any pain of the right upper extremity. He averaged 42.0# of force w/ right labour market economist and 87.0# of force w/ left labour market economist w/ dynamometer II strength testing. He averaged 22.0# of force w/ left lateral giles pinch and 18.0# of force w/ right lateral giles pinch; he averaged 10.0# of force w/ left tip pinch and 7. 0# of force w/ right tip pinch ; and finally, he averaged 17. 0# of force w/ left 3-jaw pinch and 13.5# of force w/ right 3-jaw pinch. Averages were obtained with pinchometer . Karissa would likely benefit from outpatient OT to address impaired fine motor/in-hand manipulation, impaired bimanual coordination, impaired sensation, and decreased strength of the distal right upper extremity; given Karissa's goals, therapist did not assess proximal strength of the upper extremity. Recommend evaluating at date in future as able given insurance limitations. Plan Comment 9 weeks Comment 1 x a week; 1 x every other week Therapeutic Contents Active Range of Motion, Adaptive Equipment Education, Client Education,Cognitive Skills Development,Functional Activities,Home Exercise Program,Joint Protection, Manual Therapy,Education, Neurodevelopment Treatment, Neuromuscular Re-Education, Self-Care,Stretching/ Flexibility Activities, Therapeutic Activities, Therapeutic Exercises,Sensory Re-education Sensory Assessment Sensory Profile2 Functional Wrist/Hand Scan Hand Side OT Outpatient Treatment Note - Adult Start: 01/23/21 15:50 Freq: Status: Active Protocol: Document 11/07/21 14:26 AMS (Rec: 11/07/21 14:31 AMS [id number]) OT Outpatient Adult Treatment Note Session Time Visit Start Time 13:40 Visit Stop Time 14:15 Total Visit Minutes 35 Visit Information Visit Number 12 visits Plan of Care Dates 11/01/21 - 11/08/21 Insurance Information EVAL CHARGE ONLY; 12 vists per year Setting Treatment Setting Outpatient Care General Information General Information Patient is a 51 year-old, right hand dominant male referred to outpatient OT secondary to 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 Karissa went to inpatient rehab and discharged home in early November. 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 He is likely to resume outpatient CHIEF CLOTH FINISHING RANGE OPERATOR in the new year and is limited by insurance. PLOF: Independent . - Subjective Identification Type Name Identification Reconciled With Medical Record Observations No new concerns were reported. I have not tried the bagpipes yet per Karissa. QuickDASH UE Outcome Score = 15.91; QuickDASH UE Work Module/Music Score = 50.0. Patient/Caregiver Compliance with Home Good Exercise Program - Objective Objective Measurements Please refer to below in re: progress towards meeting established goals. Short Term Goals GOALS MET Completed 9-Hole Peg Test in 25.0 seconds or less with the right hand. *MET 05/10/21 = 22. 6 seconds (versus initial 30.4 seconds) Karissa will present with improved coordination of the right hand. This will be evidenced by Karissa's verbal report of using his right thumb to formulate texts (in conjunction with the left thumb) on a daily basis over a 7-day period of time requiring increased time. *MET 11/07/21 Senior Care Goals GOALS MET Karissa will be modified independent with home exercise program utilizing provided written and visual instructions from therapist. * MET 11/07/21 Karissa will present with improved functional abilities of the affected right hand; this will be evidenced by Karissa obtaining a score of 25. 0 or less on the QuickDASH UE Outcome measure. * MET = 15.91 versus initial 43. 2 GOALS D/C Karissa will present with improved functional abilities of the affected right hand; this will be evidenced by Karissa obtaining a score of 25. 0 or less on QuickDASH UE Outcome Sports/Performing Arts Module. 11/07/21 = Score = 50.0 versus initial 87.5 GOALS MET Verbal report of playing musical instrument(s), 5+ days per week, for 2 hours or more . *MET 04/11/21 Caven will present with improved functional abilities of the affected right hand; this will be evidenced by Izzyn obtaining a score of 50. 0 or less on QuickDASH UE Outcome Sports/Performing Arts Module. *MET 05/24/21 - Treatment 2 Descriptor Functional motor planning. Problem solving. HEP. - Assessment Assessment of Improvement Karissa reported observed progress in variety of functional areas since time of initial evaluation, including musical instruments, keyboarding, and use of cell phone. Given insurance limitations and noted progress , recommend d/c from OT to HEP at this time. - Plan Therapy Recommendations Discharge from Occupational Therapy Comment 1 x every other week Frequency of Treatment Once a Week
== END 2021-11-08 11:47 | disposition home or self-care (01) ==
LOC: OT 13:30
PROVIDERS: Family Provider Physician Assistant Medical; PCP Physician Assistant Medical; Referring Provider Physician Assistant Medical; Visit Provider Physician Assistant Medical
DX: I63.9 Cerebral infarction, unspecified (principal); R27.8 Other lack of coordination
CPT/HCPCS: 97112; 97165; 97530